=== PATIENT | male | born 1965 | race Asian ===

== ENCOUNTER 2017-11-24 09:07 | Inpatient (IN) | payer SELFPAY ==
[2017-11-24] VITALS (10 sets, daily range): BP systolic 92–129; BP diastolic 60–81
[~2017-11-24] VITALS: Ht 170.2 cm; Wt 62.1 kg
[2017-11-24] MEDS ORDERED: methylPREDNISolone SOD SUCC PF 125 MG/2 ML VIAL. IV ONE (09:45)
[2017-11-24] MEDS ORDERED: IPRATRPIUM/ALBUTEROL 0.5/2.5MG 3 ML NEBU. NEB ONE (09:45)
[2017-11-24] MEDS ORDERED: IV NORMAL SALINE 1000ML BAG 1,000 ML IV ONE (09:45)
--- NOTE | 2017-11-24 09:53 | PHYS DOC ---
Past Medical History Past Medical History: No Pertinent History Past Surgical History: No Surgical History Alcohol Use: None Drug Use: None Adult General Chief Complaint Chief Complaint: SHORTNESS OF BREATH HPI HPI Patient is a 52 year old male presents to ER with complaints of shortness of air for the past month which has worsened over the past 3-4 days. Patient speaks primarily Moroccan and so discussed use of translation phone for communication. Patient is wanting friend Nellie who is at bedside to translate as he is not wanting to use translation phone. Patient's friend Nellie reports patient was seen by a [facility] seen physician 2 weeks ago and was given 10 day course of antibiotics along with 2 shots. Patient and his friend Nellie are uncertain what medications he was given. Patient reports symptoms have continued with worsening symptoms for the past 2-3 days. He denies any fever or chills, chest pain or palpitations, or swelling in extremities. He denies any recent travel, being a smoker, or previous history of DVT/PE. Patient reports he has had decreased appetite with intermittent nausea and a couple episodes of vomiting. Patient reports he's had productive cough with white phlegm. Patient has been urinating without symptoms. Pt denies any family history of CAD. 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 Pt reports when outside sxs improve and when he goes into air conditioned room his sxs seem worse. Review of Systems Review of Systems Constitutional: Denies fever or chills [] Eyes: Denies change in visual acuity, redness, or eye pain [] HENT: Denies nasal congestion or sore throat [] Respiratory: Reports prod. cough with white phlegm- SOA which worsens with exertion Cardiovascular: Denies chest pain or palpitations GI: Denies abdominal pain. Reports intermittent nausea w/2 episodes vomiting. Denies diarrhea/bloody stools : Denies dysuria or hematuria [] Musculoskeletal: Denies back pain or joint pain. Denies swelling/bilat. calf pain Integument: Denies rash or skin lesions [] Neurologic: Denies headache, focal weakness or sensory changes All other systems were reviewed and found to be within normal limits, except as documented in this note. Current Medications Current Medications Current Medications Medications (Trade) Dose Ordered Sig/Kei Start Time Stop Time Status Last Admin Dose Admin Albuterol/ Ipratropium (Duoneb) 3 ml 1X ONCE 11/24/17 09:45 11/24/17 09:50 DC 11/24/17 10:18 3 ML Azithromycin 250 ml @ 250 mls/hr 1X ONCE 11/24/17 10:30 11/24/17 11:29 DC 11/24/17 11:02 250 MLS/HR Ceftriaxone Sodium 50 ml @ 100 mls/hr 1X ONCE 11/24/17 10:30 11/24/17 10:59 DC 11/24/17 11:03 100 MLS/HR Methylprednisolone Sodium Succinate (SOLU-Medrol 125MG VIAL) 125 mg 1X ONCE 11/24/17 09:45 11/24/17 09:50 DC 11/24/17 10:16 125 MG Sodium Chloride 1,000 ml @ 1,000 mls/hr 1X ONCE 11/24/17 09:45 11/24/17 10:44 DC 11/24/17 10:15 1,000 MLS/HR Allergies Allergies Allergies Coded Allergies Type Severity Reaction Last Updated Verified No Known Drug Allergies 11/24/17 No Physical Exam Physical Exam Constitutional: Well developed, well nourished, no acute distress, non-toxic appearance. Speaking in full sentences HENT: Normocephalic, atraumatic, bilateral external ears normal, mucous membranes pink/dry, no oral exudates, nose normal. No facial swelling Eyes: PERRLA, no nystagmus, conjunctiva normal, no discharge. [] Neck: Normal range of motion, no tenderness, supple, no gross adenopathy Cardiovascular:Tachycardic heart rate/rhythm, no murmur [] Lungs & Thorax: Breath sounds clear rt upper lobe- diminished lung sounds lt side upper/lower and rt lower lobe. Resp. equal/nonlabored Abdomen: Bowel sounds normal, soft/nondistended, no tenderness, no masses, no pulsatile masses. [] Skin: Warm, dry, no erythema, no rash. [] Back: No tenderness, no CVA tenderness. [] Extremities: No tenderness, no cyanosis, no clubbing, ROM intact, no edema. [] Neurologic: Alert and oriented X 3, normal motor function, normal sensory function, no focal deficits noted. [] Psychologic: Affect normal, judgement normal, mood normal. [] Current Patient Data Vital Signs Vital Signs Date Time Temp Pulse Resp B/P (MAP) Pulse Ox O2 Delivery O2 Flow Rate FiO2 8/13/18 10:30 84 24 112/68 (83) 94 Room Air 11/24/17 09:28 98.5 98.5 Lab Values Laboratory Tests Test 11/24/17 09:45 White Blood Count 10.1 x10^3/uL (4.0-11.0) Red Blood Count 4.70 x10^6/uL (4.30-5.70) Hemoglobin 14.6 g/dL (13.0-17.5) Hematocrit 42.7 % (39.0-53.0) Mean Corpuscular Volume 91 fL (79-100) Mean Corpuscular Hemoglobin 31 pg (25-35) Mean Corpuscular Hemoglobin Concent 34 g/dL (31-37) Red Cell Distribution Width 12.7 % (11.5-14.5) Platelet Count 240 x10^3/uL (140-400) Neutrophils (%) (Auto) 81 % (31-73) H Lymphocytes (%) (Auto) 9 % (24-48) L Monocytes (%) (Auto) 8 % (0-9) Eosinophils (%) (Auto) 1 % (0-3) Basophils (%) (Auto) 1 % (0-3) Neutrophils # (Auto) 8.2 x10^3uL (1.8-7.7) H Lymphocytes # (Auto) 0.9 x10^3/uL (1.0-4.8) L Monocytes # (Auto) 0.8 x10^3/uL (0.0-1.1) Eosinophils # (Auto) 0.1 x10^3/uL (0.0-0.7) Basophils # (Auto) 0.1 x10^3/uL (0.0-0.2) D-Dimer (Trish) 15.54 ug/mlFEU (0.00-0.50) H Sodium Level 137 mmol/L (136-145) Potassium Level 3.5 mmol/L (3.5-5.1) Chloride Level 101 mmol/L (98-107) Carbon Dioxide Level 23 mmol/L (21-32) Anion Gap 13 (6-14) Blood Urea Nitrogen 18 mg/dL (8-26) Creatinine 0.9 mg/dL (0.7-1.3) Estimated GFR (Cockcroft-Gault) 88.3 BUN/Creatinine Ratio 20 (6-20) Glucose Level 87 mg/dL (70-99) Lactic Acid Level 1.9 mmol/L (0.4-2.0) Calcium Level 8.9 mg/dL (8.5-10.1) Total Bilirubin 0.9 mg/dL (0.2-1.0) Aspartate Amino Transferase (AST) 13 U/L (15-37) L Alanine Aminotransferase (ALT) 19 U/L (16-63) Alkaline Phosphatase 76 U/L (46-116) Creatine Kinase 73 U/L (39-308) Creatine Kinase MB (Mass) 0.6 ng/mL (0.0-3.6) Creatine Kinase MB Relative Index % (0-4) Troponin I Quantitative < 0.017 ng/mL (0.000-0.055) LG-Dcb-L-Type Natriuretic Peptide 24 pg/mL (0-124) Total Protein 7.9 g/dL (6.4-8.2) Albumin 3.4 g/dL (3.4-5.0) Albumin/Globulin Ratio 0.8 (1.0-1.7) L Laboratory Tests 11/24/17 09:45 Laboratory Tests 11/24/17 09:45 EKG EKG EKG obtained 11/24/17 at [address] Amaral Sinus tachycardia Vent rate 106 Radiology/Procedures Radiology/Procedures AP and Lateral Views of the Chest 11/24/2017 9:38 AM Indication: SHORTNESS OF AIR X 1 MONTH WORSE IN THE LAST 3 DAYS ALONG WITH A PRODUCTIVE COUGH Comparison: Not available Findings: There is a large left-sided pleural fluid collection with underlying compressive atelectasis which appears involve the entirety of the left lower lobe. Progressive atelectasis involving the upper lobes also seen. Bronchograms are seen in the left perihilar region. Empyema not excluded. There is a small right pleural effusion, with fluid noted in the minor fissure. There is a right infrahilar and middle lobe infiltrate. Some rightward shift of the mediastinum appears to be present. No pneumothorax is identified. An acute osseous abnormality is not identified. IMPRESSION: 1.Large loculated appearing left pleural fluid collection with significant underlying compressive atelectasis involving the upper lobe, and the entirety of the lower lobe. Mild rightward shift of the mediastinum noted. Empyema not excluded. 2. Right infrahilar and middle lobe infiltrate 3. Small right pleural effusion 4. Contrast-enhanced CT of the chest recommended for further characterization. Electronically signed by: Cuong Chadwick MD (11/24/2017 10:15 AM) [facility] DICTATED and SIGNED BY: CUONG CHADWICK MD DATE: 11/24/17 1012 Course & Med Decision Making Course & Med Decision Making Pertinent Labs and Imaging studies reviewed. (See chart for details) Dicussed pt's case and plan of care with Dr. Amaral. Pt was found to have lg lt side pleural effusion with fld collection along with rt side infrahilar and middle lobe infiltr. Blood cxs and lactic acid ordered along with IV Rocephin and Azithromycin. DDimer is pending. WBCs NL at 10.1 with no bands 81 neuts. EKG with no acute ST elevation/STEMI and troponin <0.017. Discussed test results with pt via translation phone along with plans for IV antibiotics and admission. Pt agreeable with admit and tx plan. He remains nontoxic in appearance and in no visible distress on re-eval. O2 sat was 93% on RA so O2 applied via NC at 2L. Pt denies SOA or CP. 1031: spoke with Dr. Mcneal, hospitalist and discussed pt's case along with admission plans to their services for further care. Will place consult for pulm. DDimer 15.[address] angio chest was ordered. Dragon Disclaimer Dragon Disclaimer This electronic medical record was generated, in whole or in part, using a voice recognition dictation system. Departure Departure Impression: Primary Impression: Dyspnea Additional Impressions: Pleural effusion on left Empyema lung Disposition: ADMITTED INPATIENT Admitting Physician: Kvng Hugo Condition: STABLE Referrals: NO PCP (PCP) Problem Qualifiers LUCA JARQUIN APRN Nov 24, 2017 09:53
[2017-11-24 10:06] LABS: BASO # 0.1 x10^3/uL (0.0-0.2); BASO % 1 % (0-3); EOS # 0.1 x10^3/uL (0.0-0.7); EOS % 1 % (0-3); HEMATOCRIT 42.7 % (39.0-53.0); HEMOGLOBIN 14.6 g/dL (13.0-17.5); LYMPH # 0.9 x10^3/uL (1.0-4.8); LYMPH % 9 % (24-48); MEAN CORPUSCULAR HEMOGLOBIN 31 pg (25-35); MEAN CORPUSCULAR HGB CONC 34 g/dL (31-37); MEAN CORPUSCULAR VOLUME 91 fL (79-100); MONO # 0.8 x10^3/uL (0.0-1.1); MONO % 8 % (0-9); NEUT # 8.2 x10^3uL (1.8-7.7); NEUT % 81 % (31-73); PLATELET COUNT 240 x10^3/uL (140-400); RED CELL DISTRIBUTION WIDTH 12.7 % (11.5-14.5); WHITE BLOOD COUNT 10.1 x10^3/uL (4.0-11.0)
--- NOTE | 2017-11-24 10:06 | EKG ---
[facility] [address] [place] [address] Test Date: 2017-11-24 Test Time: 09:31:16 Pat Name: STORMY CASTILLO Department: Room: Gender: M Chairman Emeritus: : 1965 Requested By: LUCA JARQUIN Order Number: [id number] Reading MD: Kobi Sanchez MD Measurements Intervals [place] Rate: 105 P: 30 [place]: 134 QRS: 34 QRSD: 84 T: 9 QT: 336 QTc: 448 Interpretive Statements SINUS TACHYCARDIA Electronically Signed On 11-27-2017 15:13:56 CDT by Kobi Sanchez MD
[2017-11-24 10:17] LABS: CALCIUM 8.9 mg/dL (8.5-10.1); CREATININE 0.9 mg/dL (0.7-1.3); GFR 88.3; POTASSIUM 3.5 mmol/L (3.5-5.1)
--- NOTE | 2017-11-24 10:18 | RAD ---
AP and Lateral Views of the Chest 11/24/2017 9:38 AM Indication: SHORTNESS OF AIR X 1 MONTH WORSE IN THE LAST 3 DAYS ALONG WITH A PRODUCTIVE COUGH Comparison: Not available Findings: There is a large left-sided pleural fluid collection with underlying compressive atelectasis which appears involve the entirety of the left lower lobe. Progressive atelectasis involving the upper lobes also seen. Bronchograms are seen in the left perihilar region. Empyema not excluded. There is a small right pleural effusion, with fluid noted in the minor fissure. There is a right infrahilar and middle lobe infiltrate. Some rightward shift of the mediastinum appears to be present. No pneumothorax is identified. An acute osseous abnormality is not identified. IMPRESSION: 1.Large loculated appearing left pleural fluid collection with significant underlying compressive atelectasis involving the upper lobe, and the entirety of the lower lobe. Mild rightward shift of the mediastinum noted. Empyema not excluded. 2. Right infrahilar and middle lobe infiltrate 3. Small right pleural effusion 4. Contrast-enhanced CT of the chest recommended for further characterization. Electronically signed by: Cuong Stevens MD (11/24/2017 10:15 AM) [facility]
[2017-11-24 10:19] LABS: ALBUMIN 3.4 g/dL (3.4-5.0); ALBUMIN/GLOBULIN RATIO 0.8 (1.0-1.7); TOTAL BILIRUBIN 0.9 mg/dL (0.2-1.0); TOTAL PROTEIN 7.9 g/dL (6.4-8.2)
[2017-11-24 10:29] LABS: CREATINE KINASE 73 U/L (39-308)
[2017-11-24] MEDS ORDERED: AZITHRMYCN 500MG IVPB FOR OMNI 250 ML IV ONE (10:30)
[2017-11-24] MEDS ORDERED: IOHEXOL 300 MG/ML 100ML VIAL. IV ONE (12:30)
[2017-11-24] MEDS ORDERED: CONTRAST GIVEN. MC PRN (12:45)
--- NOTE | 2017-11-24 14:09 | PDOC1 ---
History and Physical Date of Admission Date of Admission DATE: 11/24/17 TIME: 14:08 Identification/Chief Complaint Chief Complaint Patient's friend Nellie reports seen by a [facility] seen physician 2 weeks ago and was given 10 day course of antibiotics along with 2 shots. Patient reports symptoms have continued with worsening symptoms for the past 2 days. denies any fever or chills, chest pain or palpitations, or swelling in extremities, denies any recent travel, being a smoker, or previous history of DVT/PE. he has had decreased appetite with intermittent nausea and a couple episodes of vomiting. Patient reports he's had productive cough with white phlegm. Past Medical History Cardiovascular: No pertinent hx Infectious disease: No pertinent hx ENT: No pertinent hx Dermatology: No pertinent hx Family History Family History: High Cholestrol Social History Smoke: No ALCOHOL: social Drugs: None Current Problem List Problem List Problems Medical Problems: (1) Dyspnea Status: Acute (2) Empyema lung Status: Acute (3) Pleural effusion on left Status: Acute Current Medications Current Medications Current Medications Albuterol/ Ipratropium (Duoneb) 3 ml 1X ONCE NEB Last administered on at 10:18; Start 11/24/17 at 09:45; Stop 11/24/17 at 09:50; Status DC Sodium Chloride 1,000 ml @ 1,000 mls/hr 1X ONCE IV Last administered on at 10:15; Start 11/24/17 at 09:45; Stop 11/24/17 at 10:44; Status DC Methylprednisolone Sodium Succinate (SOLU-Medrol 125MG VIAL) 125 mg 1X ONCE IV Last administered on 11/24/17at 10:16; Start 11/24/17 at 09:45; Stop 11/24/17 at 09:50; Status DC Ceftriaxone Sodium 50 ml @ 100 mls/hr 1X ONCE IV Last administered on at 11:03; Start 11/24/17 at 10:30; Stop 11/24/17 at 10:59; Status DC Azithromycin 250 ml @ 250 mls/hr 1X ONCE IV Last administered on 11/24/17at 11 :02; Start 11/24/17 at 10:30; Stop 11/24/17 at 11:29; Status DC Iohexol (Omnipaque 300 Mg/ml) 75 ml 1X ONCE IV ; Start 11/24/17 at 12:30; Stop 11/24/17 at 12:33; Status DC Info (CONTRAST GIVEN -- Rx MONITORING) 1 each PRN DAILY PRN MC SEE COMMENTS; Start 11/24/17 at 12:45; Stop 11/26/17 at 12:44 Allergies Allergies: Coded Allergies: No Known Drug Allergies (Unverified , 11/24/17) ROS Review of System Review of Systems Review of Systems Constitutional: fever AND chills [] Eyes: Denies change in visual acuity, redness, or eye pain [] HENT: Denies nasal congestion or sore throat [] Respiratory: Reports prod. cough with white phlegm- SOA which worsens with exertion Cardiovascular: Denies chest pain or palpitations GI: Denies abdominal pain. Reports intermittent nausea w/2 episodes vomiting. Denies diarrhea/bloody stools : Denies dysuria or hematuria [] Musculoskeletal: Denies back pain or joint pain. Denies swelling/bilat. calf pain Integument: Denies rash or skin lesions [] Neurologic: Denies headache, focal weakness or sensory changes 14 PT systems were reviewed and found to be within normal limits, except as documented General: YES: Chills, Fatigue Respiratory: YES: Cough, Shortness of breath Physical Exam Physical Exam Physical Exam Physical Exam Constitutional: Well developed, well nourished, no acute distress, non-toxic appearance. [] HENT: Normocephalic, atraumatic, bilateral external ears normal, mucous membranes pink/dry, no oral exudates, nose normal. [] Eyes: PERRLA, no nystagmus, conjunctiva normal, no discharge. [] Neck: Normal range of motion, no tenderness, supple, no gross adenopathy Cardiovascular:Tachycardic heart rate/rhythm, no murmur [] Lungs & Thorax: Breath sounds clear rt upper lobe- diminished lung sounds lt side upper/lower and rt lower lobe. Resp. equal/nonlabored Abdomen: Bowel sounds normal, soft/nondistended, no tenderness, no masses, no pulsatile masses. [] Skin: Warm, dry, no erythema, no rash. [] Back: No tenderness, no CVA tenderness. [] Extremities: No tenderness, no cyanosis, no clubbing, ROM intact, no edema. [] Neurologic: Alert and oriented X 3, normal motor function, normal sensory function, no focal deficits noted. [] Psychologic: Affect normal, judgement normal, mood normal. [] General: Alert, Cooperative HEENT: PERRLA, EOMI Heart: no gallops Rectal Exam: not examined, deferred Neuro: Cranial nerves 3-12 NL Psych/Mental Status: Mood NL Vitals Vitals Vital Signs Date Time Temp Pulse Resp B/P (MAP) Pulse Ox O2 Delivery O2 Flow Rate FiO2 11/24/17 11:30 90 22 103/69 (80) 96 Nasal Cannula 2.0 11/24/17 09:28 98.5 98.5 Labs Labs Laboratory Tests Test 11/24/17 09:45 White Blood Count 10.1 x10^3/uL (4.0-11.0) Red Blood Count 4.70 x10^6/uL (4.30-5.70) Hemoglobin 14.6 g/dL (13.0-17.5) Hematocrit 42.7 % (39.0-53.0) Mean Corpuscular Volume 91 fL (79-100) Mean Corpuscular Hemoglobin 31 pg (25-35) Mean Corpuscular Hemoglobin Concent 34 g/dL (31-37) Red Cell Distribution Width 12.7 % (11.5-14.5) Platelet Count 240 x10^3/uL (140-400) Neutrophils (%) (Auto) 81 % (31-73) Lymphocytes (%) (Auto) 9 % (24-48) Monocytes (%) (Auto) 8 % (0-9) Eosinophils (%) (Auto) 1 % (0-3) Basophils (%) (Auto) 1 % (0-3) Neutrophils # (Auto) 8.2 x10^3uL (1.8-7.7) Lymphocytes # (Auto) 0.9 x10^3/uL (1.0-4.8) Monocytes # (Auto) 0.8 x10^3/uL (0.0-1.1) Eosinophils # (Auto) 0.1 x10^3/uL (0.0-0.7) Basophils # (Auto) 0.1 x10^3/uL (0.0-0.2) D-Dimer (Trish) 15.54 ug/mlFEU (0.00-0.50) Sodium Level 137 mmol/L (136-145) Potassium Level 3.5 mmol/L (3.5-5.1) Chloride Level 101 mmol/L (98-107) Carbon Dioxide Level 23 mmol/L (21-32) Anion Gap 13 (6-14) Blood Urea Nitrogen 18 mg/dL (8-26) Creatinine 0.9 mg/dL (0.7-1.3) Estimated GFR (Cockcroft-Gault) 88.3 BUN/Creatinine Ratio 20 (6-20) Glucose Level 87 mg/dL (70-99) Lactic Acid Level 1.9 mmol/L (0.4-2.0) Calcium Level 8.9 mg/dL (8.5-10.1) Total Bilirubin 0.9 mg/dL (0.2-1.0) Aspartate Amino Transf (AST/SGOT) 13 U/L (15-37) Alanine Aminotransferase (ALT/SGPT) 19 U/L (16-63) Alkaline Phosphatase 76 U/L (46-116) Creatine Kinase 73 U/L (39-308) Creatine Kinase MB (Mass) 0.6 ng/mL (0.0-3.6) Creatine Kinase MB Relative Index % (0-4) Troponin I Quantitative < 0.017 ng/mL (0.000-0.055) EB-Emz-L-Type Natriuretic Peptide 24 pg/mL (0-124) Total Protein 7.9 g/dL (6.4-8.2) Albumin 3.4 g/dL (3.4-5.0) Albumin/Globulin Ratio 0.8 (1.0-1.7) Laboratory Tests Test 11/24/17 09:45 White Blood Count 10.1 x10^3/uL (4.0-11.0) Red Blood Count 4.70 x10^6/uL (4.30-5.70) Hemoglobin 14.6 g/dL (13.0-17.5) Hematocrit 42.7 % (39.0-53.0) Mean Corpuscular Volume 91 fL (79-100) Mean Corpuscular Hemoglobin 31 pg (25-35) Mean Corpuscular Hemoglobin Concent 34 g/dL (31-37) Red Cell Distribution Width 12.7 % (11.5-14.5) Platelet Count 240 x10^3/uL (140-400) Neutrophils (%) (Auto) 81 % (31-73) Lymphocytes (%) (Auto) 9 % (24-48) Monocytes (%) (Auto) 8 % (0-9) Eosinophils (%) (Auto) 1 % (0-3) Basophils (%) (Auto) 1 % (0-3) Neutrophils # (Auto) 8.2 x10^3uL (1.8-7.7) Lymphocytes # (Auto) 0.9 x10^3/uL (1.0-4.8) Monocytes # (Auto) 0.8 x10^3/uL (0.0-1.1) Eosinophils # (Auto) 0.1 x10^3/uL (0.0-0.7) Basophils # (Auto) 0.1 x10^3/uL (0.0-0.2) D-Dimer (Trish) 15.54 ug/mlFEU (0.00-0.50) Sodium Level 137 mmol/L (136-145) Potassium Level 3.5 mmol/L (3.5-5.1) Chloride Level 101 mmol/L (98-107) Carbon Dioxide Level 23 mmol/L (21-32) Anion Gap 13 (6-14) Blood Urea Nitrogen 18 mg/dL (8-26) Creatinine 0.9 mg/dL (0.7-1.3) Estimated GFR (Cockcroft-Gault) 88.3 BUN/Creatinine Ratio 20 (6-20) Glucose Level 87 mg/dL (70-99) Lactic Acid Level 1.9 mmol/L (0.4-2.0) Calcium Level 8.9 mg/dL (8.5-10.1) Total Bilirubin 0.9 mg/dL (0.2-1.0) Aspartate Amino Transf (AST/SGOT) 13 U/L (15-37) Alanine Aminotransferase (ALT/SGPT) 19 U/L (16-63) Alkaline Phosphatase 76 U/L (46-116) Creatine Kinase 73 U/L (39-308) Creatine Kinase MB (Mass) 0.6 ng/mL (0.0-3.6) Creatine Kinase MB Relative Index % (0-4) Troponin I Quantitative < 0.017 ng/mL (0.000-0.055) CI-Hpq-A-Type Natriuretic Peptide 24 pg/mL (0-124) Total Protein 7.9 g/dL (6.4-8.2) Albumin 3.4 g/dL (3.4-5.0) Albumin/Globulin Ratio 0.8 (1.0-1.7) Images Images IMPRESSION: 1.Large loculated appearing left pleural fluid collection with significant underlying compressive atelectasis involving the upper lobe, and the entirety of the lower lobe. Mild rightward shift of the mediastinum noted. Empyema not excluded. 2. Right infrahilar and middle lobe infiltrate 3. Small right pleural effusion 4. Contrast-enhanced CT of the chest recommended for further characterization. Electronically signed by: Cuong Stevens MD (11/24/2017 10:15 AM) [facility] VTE Prophylaxis Ordered VTE Prophylaxis Devices: Yes VTE Pharmacological Prophylaxi: Yes Assessment/Plan Assessment/Plan Impression: Dyspnea Pleural effusion on left .Large loculated appearing left pleural fluid collection with significant underlying compressive atelectasis involving the upper lobe, and the entirety of the lower lobe. Mild rightward shift of the mediastinum noted. Empyema lung ADMITTED INPATIENT PULM CONSULT ID CONSULT EMPERIC IV ANTIBIOTICS, ZITHROMAX, ROCEPHIN URINE STREP PNEUMO AG LEGIONELLA URINE AG PHILIP GONZALES MD Nov 24, 2017 14:09
[2017-11-24] MEDS ORDERED: LIDOCAINE WITH 8.4% SOD BICARB 3 ML DISP.SYRIN. ONE (14:49)
[2017-11-24] MEDS ORDERED: ENOXAPARIN 40 MG/0.4 ML SYRINGE. SQ SCH (15:00)
--- NOTE | 2017-11-24 15:11 | RAD ---
CLINICAL HISTORY: SHORTNESS OF AIR OMNI 300 75ML. COMPARISON: chest radiograph 11/24/2017. TECHNIQUE: CT of the chest following the administration of intravenous contrast. Coronal and sagittal reformatted images were generated. PQRS compliance Statement One or more of the following individualized dose reduction techniques were utilized for this study: 1. Automated exposure control 2. Adjustment of the mA and/or kV according to patient size 3. Use of iterative reconstruction technique FINDINGS: Adequate contrast bolus timing. There is no abnormal deviation of the interventricular septum. Within the constraints slight limitations of motion artifact in the lung bases, no definite embolus is identified. The heart is not enlarged. Rightward shift of the mediastinum as described below. A 1.6 x 0.1 cm AP window lymph node is seen. A conglomerate of right hilar lymph nodes are seen measuring 2.8 x 2.9 cm. There is a large left pleural effusion resulting in inversion of the left hemidiaphragm and rightward mass effect on the mediastinum. There is diffuse left lung atelectasis with minimal aeration of the left upper lung. Middle lobe parenchymal airspace opacities are seen with associated air bronchograms, likely consolidation. No right pleural effusion. Visualized upper abdomen is grossly unremarkable. No definite aggressive osseous lesion is seen. IMPRESSION: 1. No evidence for acute pulmonary embolus. 2. Large left pleural effusion resulting in rightward mediastinal shift, inversion of the left hemidiaphragm and near complete atelectasis of the left lung. 3. Mediastinal and right hilar lymphadenopathy, possibly reactive. 4. Middle lobe parenchymal airspace opacity with some air bronchograms, consolidation possibly from infectious etiology. Electronically signed by: Wesley Colindres MD (11/24/2017 3:07 PM) [facility]
[2017-11-24] MEDS ORDERED: LIDOCAINE WITH 8.4% SOD BICARB 3 ML DISP.SYRIN. INJ ONE (15:45)
--- NOTE | 2017-11-24 15:59 | CONS ---
DATE OF CONSULTATION: ATTENDING PHYSICIAN: Dr. Shook. REASON FOR CONSULTATION: Pleural effusion. HISTORY OF PRESENT ILLNESS: The patient is a 52-year-old [place]ian male who does not speak much Telugu. Much of the information is obtained from the ER note where translation service was used. The patient presented to the hospital with increasing shortness of breath for last one month. He also has a cough. He has finished 10 days course of antibiotics along with 2 shots. He denies being a smoker. No history of deep vein thrombosis or pulmonary embolism. He has some intermittent nausea and also some episodes of vomiting as well. His CT chest was reviewed. This was done with CT angiogram protocol as his D-dimer is markedly elevated. There was no evidence of pulmonary embolism. There was a large left pleural effusion resulting in some mediastinal shift contralaterally and causing near complete atelectasis of the left lung. There was some reactive mediastinal and hilar adenopathy. I have been asked to see him for further evaluation. PAST MEDICAL HISTORY: Nothing major except recent dyspnea for last one month. PAST SURGICAL HISTORY: No recent surgery. ALLERGIES: None. CURRENT MEDICATIONS: Reviewed as listed in the MRAD including antibiotics. REVIEW OF SYSTEMS: Unable to obtain from the patient due to language barrier. SOCIAL HISTORY: Denies tobacco history. PHYSICAL EXAMINATION: VITAL SIGNS: Reviewed. Pulse ox 94% on room air, afebrile. HEENT: Sclerae nonicteric. NECK: Supple. LUNGS: Diminished breath sounds left lung. CARDIOVASCULAR: Regular rate and rhythm. ABDOMEN: Soft. EXTREMITIES: With no pitting edema. LABORATORY DATA: Reviewed. White cell count 10.1, hemoglobin 14.6 and platelets are 240. BUN 18, creatinine 0.9. IMPRESSION: 1. Large partially loculated left-sided pleural effusion. The differential diagnosis would include pneumonia with empyema. Malignancy appears to be less likely. There is no definite mass seen Congestive heart failure again less likely. 2. No significant history of tobacco use. RECOMMENDATIONS: 1. Continue present antibiotics. 2. P.r.n. bronchodilators. 3. P.r.n. oxygen. 4. CT-guided left chest tube and attached to Pleur-Evac and review the analysis and assess for empyema. 5. We will withhold Lovenox until the procedure is done. Discussed with RN. RAYO LUGO MD DR: Garrett JOB#: [id number] / [id number]
[2017-11-24] MEDS: LACTOBACILLUS RHAMNOSUS GG 1 CAPSULE. PO SCH (20:03)
[2017-11-25] VITALS (8 sets, daily range): BP systolic 78–95; BP diastolic 48–60
[2017-11-25 06:27] LABS: BASO % 0 % (0-3); EOS % 0 % (0-3); HEMATOCRIT 40.9 % (39.0-53.0); HEMOGLOBIN 13.8 g/dL (13.0-17.5); LYMPH # 0.9 x10^3/uL (1.0-4.8); LYMPH % 6 % (24-48); MEAN CORPUSCULAR HEMOGLOBIN 31 pg (25-35); MEAN CORPUSCULAR HGB CONC 34 g/dL (31-37); MEAN CORPUSCULAR VOLUME 91 fL (79-100); MONO % 6 % (0-9); NEUT # 13.6 x10^3uL (1.8-7.7); NEUT % 88 % (31-73); PLATELET COUNT 230 x10^3/uL (140-400); RED BLOOD COUNT 4.49 x10^6/uL (4.30-5.70); RED CELL DISTRIBUTION WIDTH 12.9 % (11.5-14.5); WHITE BLOOD COUNT 15.5 x10^3/uL (4.0-11.0)
[2017-11-25 06:49] LABS: ALBUMIN 2.8 g/dL (3.4-5.0); ALBUMIN/GLOBULIN RATIO 0.7 (1.0-1.7); CALCIUM 8.4 mg/dL (8.5-10.1); CREATININE 0.8 mg/dL (0.7-1.3); GFR 101.1; POTASSIUM 3.7 mmol/L (3.5-5.1); TOTAL BILIRUBIN 0.4 mg/dL (0.2-1.0)
--- NOTE | 2017-11-25 08:04 | RAD ---
Left thoracostomy tube placement with ultrasound guidance 11/24/2017 Indication: Large left pleural effusion Comparison study: Chest radiograph earlier today Discussion: The risks and benefits of the procedure were discussed the patient. Informed consent was obtained. Timeout procedure was performed. Left posterior chest was prepped and draped using sterile barrier technique. Ultrasound evaluation demonstrates a large left pleural fluid collection. Reference images were stored medical record. 1% lidocaine was administered for local anesthesia to the skin and subcutaneous tissues. A 5 [place] sheath needle was advanced into the fluid collection. A guidewire was advanced in the collection over which, following dilatation, a 12 [place] pigtail drain catheter was placed. Serosanguineous fluid was aspirated and sent for further evaluation per ordering physician request. The catheter was secured in place, connected to a Pleur-evac device, and a sterile dressing applied. Impression: Ultrasound-guided placement of a left thoracostomy tube
[2017-11-25] MEDS ORDERED: ONDANSETRON PF 4 MG/2 ML VIAL. IV PRN (09:00)
[2017-11-25] MEDS: LACTOBACILLUS RHAMNOSUS GG 1 CAPSULE. PO SCH ×2 (09:14→20:44)
[2017-11-25] MEDS: AZITHROMYCIN 250 MG TABLET. PO SCH (09:14)
--- NOTE | 2017-11-25 10:24 | PDOC ---
PULMONARY PROGRESS NOTES Subjective s/p left chest tube 11/24 1800 cc fluid came out so far, feels better Vitals Vital Signs Date Time Temp Pulse Resp B/P (MAP) Pulse Ox O2 Delivery O2 Flow Rate FiO2 11/25/17 08:30 91 95/60 (72) 11/25/17 07:00 98.4 18 95 Nasal Cannula 2.0 98.4 General: Alert, No acute distress Lungs: Other (improved aeration left lung) Cardiovascular: S1 Abdomen: Soft Neuro Exam: Alert Extremities: No Edema Skin: Warm Labs Laboratory Tests Test 11/24/17 09:45 11/24/17 16:00 11/25/17 06:10 White Blood Count 10.1 x10^3/uL (4.0-11.0) 15.5 x10^3/uL (4.0-11.0) Red Blood Count 4.70 x10^6/uL (4.30-5.70) 4.49 x10^6/uL (4.30-5.70) Hemoglobin 14.6 g/dL (13.0-17.5) 13.8 g/dL (13.0-17.5) Hematocrit 42.7 % (39.0-53.0) 40.9 % (39.0-53.0) Mean Corpuscular Volume 91 fL (79-100) 91 fL (79-100) Mean Corpuscular Hemoglobin 31 pg (25-35) 31 pg (25-35) Mean Corpuscular Hemoglobin Concent 34 g/dL (31-37) 34 g/dL (31-37) Red Cell Distribution Width 12.7 % (11.5-14.5) 12.9 % (11.5-14.5) Platelet Count 240 x10^3/uL (140-400) 230 x10^3/uL (140-400) Neutrophils (%) (Auto) 81 % (31-73) 88 % (31-73) Lymphocytes (%) (Auto) 9 % (24-48) 6 % (24-48) Monocytes (%) (Auto) 8 % (0-9) 6 % (0-9) Eosinophils (%) (Auto) 1 % (0-3) 0 % (0-3) Basophils (%) (Auto) 1 % (0-3) 0 % (0-3) Neutrophils # (Auto) 8.2 x10^3uL (1.8-7.7) 13.6 x10^3uL (1.8-7.7) Lymphocytes # (Auto) 0.9 x10^3/uL (1.0-4.8) 0.9 x10^3/uL (1.0-4.8) Monocytes # (Auto) 0.8 x10^3/uL (0.0-1.1) 1.0 x10^3/uL (0.0-1.1) Eosinophils # (Auto) 0.1 x10^3/uL (0.0-0.7) 0.0 x10^3/uL (0.0-0.7) Basophils # (Auto) 0.1 x10^3/uL (0.0-0.2) 0.0 x10^3/uL (0.0-0.2) D-Dimer (Trish) 15.54 ug/mlFEU (0.00-0.50) Sodium Level 137 mmol/L (136-145) 138 mmol/L (136-145) Potassium Level 3.5 mmol/L (3.5-5.1) 3.7 mmol/L (3.5-5.1) Chloride Level 101 mmol/L (98-107) 106 mmol/L (98-107) Carbon Dioxide Level 23 mmol/L (21-32) 26 mmol/L (21-32) Anion Gap 13 (6-14) 6 (6-14) Blood Urea Nitrogen 18 mg/dL (8-26) 12 mg/dL (8-26) Creatinine 0.9 mg/dL (0.7-1.3) 0.8 mg/dL (0.7-1.3) Estimated GFR (Cockcroft-Gault) 88.3 101.1 BUN/Creatinine Ratio 20 (6-20) 15 (6-20) Glucose Level 87 mg/dL (70-99) 113 mg/dL (70-99) Lactic Acid Level 1.9 mmol/L (0.4-2.0) Calcium Level 8.9 mg/dL (8.5-10.1) 8.4 mg/dL (8.5-10.1) Total Bilirubin 0.9 mg/dL (0.2-1.0) 0.4 mg/dL (0.2-1.0) Aspartate Amino Transf (AST/SGOT) 13 U/L (15-37) 10 U/L (15-37) Alanine Aminotransferase (ALT/SGPT) 19 U/L (16-63) 15 U/L (16-63) Alkaline Phosphatase 76 U/L (46-116) 67 U/L (46-116) Creatine Kinase 73 U/L (39-308) Creatine Kinase MB (Mass) 0.6 ng/mL (0.0-3.6) Creatine Kinase MB Relative Index % (0-4) Troponin I Quantitative < 0.017 ng/mL (0.000-0.055) QS-Xpt-B-Type Natriuretic Peptide 24 pg/mL (0-124) Total Protein 7.9 g/dL (6.4-8.2) 7.0 g/dL (6.4-8.2) Albumin 3.4 g/dL (3.4-5.0) 2.8 g/dL (3.4-5.0) Albumin/Globulin Ratio 0.8 (1.0-1.7) 0.7 (1.0-1.7) Body Fluid pH 7.49 Laboratory Tests Test 11/24/17 16:00 11/25/17 06:10 Body Fluid pH 7.49 White Blood Count 15.5 x10^3/uL (4.0-11.0) Red Blood Count 4.49 x10^6/uL (4.30-5.70) Hemoglobin 13.8 g/dL (13.0-17.5) Hematocrit 40.9 % (39.0-53.0) Mean Corpuscular Volume 91 fL (79-100) Mean Corpuscular Hemoglobin 31 pg (25-35) Mean Corpuscular Hemoglobin Concent 34 g/dL (31-37) Red Cell Distribution Width 12.9 % (11.5-14.5) Platelet Count 230 x10^3/uL (140-400) Neutrophils (%) (Auto) 88 % (31-73) Lymphocytes (%) (Auto) 6 % (24-48) Monocytes (%) (Auto) 6 % (0-9) Eosinophils (%) (Auto) 0 % (0-3) Basophils (%) (Auto) 0 % (0-3) Neutrophils # (Auto) 13.6 x10^3uL (1.8-7.7) Lymphocytes # (Auto) 0.9 x10^3/uL (1.0-4.8) Monocytes # (Auto) 1.0 x10^3/uL (0.0-1.1) Eosinophils # (Auto) 0.0 x10^3/uL (0.0-0.7) Basophils # (Auto) 0.0 x10^3/uL (0.0-0.2) Sodium Level 138 mmol/L (136-145) Potassium Level 3.7 mmol/L (3.5-5.1) Chloride Level 106 mmol/L (98-107) Carbon Dioxide Level 26 mmol/L (21-32) Anion Gap 6 (6-14) Blood Urea Nitrogen 12 mg/dL (8-26) Creatinine 0.8 mg/dL (0.7-1.3) Estimated GFR (Cockcroft-Gault) 101.1 BUN/Creatinine Ratio 15 (6-20) Glucose Level 113 mg/dL (70-99) Calcium Level 8.4 mg/dL (8.5-10.1) Total Bilirubin 0.4 mg/dL (0.2-1.0) Aspartate Amino Transf (AST/SGOT) 10 U/L (15-37) Alanine Aminotransferase (ALT/SGPT) 15 U/L (16-63) Alkaline Phosphatase 67 U/L (46-116) Total Protein 7.0 g/dL (6.4-8.2) Albumin 2.8 g/dL (3.4-5.0) Albumin/Globulin Ratio 0.7 (1.0-1.7) Impression . 1. Large partially loculated left-sided pleural effusion. The differential diagnosis would include pneumonia with empyema. Malignancy appears to be less likely. There is no definite mass seen Congestive heart failure again less likely. 2. No significant history of tobacco use. Plan . 1. Continue present antibiotics. 2. P.r.n. bronchodilators. 3. P.r.n. oxygen. 4. s/p left chest tube placement. will review the analysis once available. Follow ID rec of Abx for empyema. 5. re-start Lovenox d/w MAKENNA CATHERINEAN,RAYO U MD Nov 25, 2017 10:23
--- NOTE | 2017-11-25 10:43 | PDOC ---
PROGRESS NOTES History of Present Illness History of Present Illness Assessment/Plan Assessment/Plan Impression: Dyspnea Pleural effusion on left .Large loculated appearing left pleural fluid collection with significant underlying compressive atelectasis involving the upper lobe, and the entirety of the lower lobe. Mild rightward shift of the mediastinum noted. ? TB 10 yrs ago , treated at [place] Empyene lung ADMITTED INPATIENT PULM CONSULT reviewed ID CONSULT EMPERIC IV ANTIBIOTICS, ZITHROMAX, ROCEPHIN URINE STREP PNEUMO AG LEGIONELLA URINE AG resp isolation Vitals Vitals Vital Signs Date Time Temp Pulse Resp B/P (MAP) Pulse Ox O2 Delivery O2 Flow Rate FiO2 11/25/17 08:30 91 95/60 (72) 11/25/17 07:00 98.4 18 95 Nasal Cannula 2.0 98.4 Physical Exam Physical Exam Neck: Normal range of motion, no tenderness, supple, no gross adenopathy Cardiovascular:Tachycardic heart rate/rhythm, no murmur [] Lungs & Thorax: . Resp. equal/nonlabored Abdomen: Bowel sounds normal, soft/nondistended, no tenderness, no masses, no pulsatile masses. [] Skin: Warm, dry, no erythema, no rash. [] Back: No tenderness, no CVA tenderness. [] Extremities: No tenderness, no cyanosis, no clubbing, ROM intact, no edema. [] Neurologic: Alert and oriented X 3, normal motor function, normal sensory function, no focal deficits noted. [] Psychologic: Affect normal, judgement normal, mood normal. [] General: Alert, Cooperative HEENT: PERRLA, EOMI Heart: no gallops Rectal Exam: not examined, deferred Neuro: Cranial nerves 3-12 NL Psych/Mental Status: Mood NL General: Alert, Cooperative, mild distress Heart: Regular rate Lungs: Other (improved aeration left lung) Abdomen: Normal bowel sounds, Soft Extremities: No clubbing, No cyanosis Labs LABS Laboratory Tests Test 11/24/17 16:00 11/25/17 06:10 Body Fluid pH 7.49 White Blood Count 15.5 x10^3/uL (4.0-11.0) Red Blood Count 4.49 x10^6/uL (4.30-5.70) Hemoglobin 13.8 g/dL (13.0-17.5) Hematocrit 40.9 % (39.0-53.0) Mean Corpuscular Volume 91 fL (79-100) Mean Corpuscular Hemoglobin 31 pg (25-35) Mean Corpuscular Hemoglobin Concent 34 g/dL (31-37) Red Cell Distribution Width 12.9 % (11.5-14.5) Platelet Count 230 x10^3/uL (140-400) Neutrophils (%) (Auto) 88 % (31-73) Lymphocytes (%) (Auto) 6 % (24-48) Monocytes (%) (Auto) 6 % (0-9) Eosinophils (%) (Auto) 0 % (0-3) Basophils (%) (Auto) 0 % (0-3) Neutrophils # (Auto) 13.6 x10^3uL (1.8-7.7) Lymphocytes # (Auto) 0.9 x10^3/uL (1.0-4.8) Monocytes # (Auto) 1.0 x10^3/uL (0.0-1.1) Eosinophils # (Auto) 0.0 x10^3/uL (0.0-0.7) Basophils # (Auto) 0.0 x10^3/uL (0.0-0.2) Sodium Level 138 mmol/L (136-145) Potassium Level 3.7 mmol/L (3.5-5.1) Chloride Level 106 mmol/L (98-107) Carbon Dioxide Level 26 mmol/L (21-32) Anion Gap 6 (6-14) Blood Urea Nitrogen 12 mg/dL (8-26) Creatinine 0.8 mg/dL (0.7-1.3) Estimated GFR (Cockcroft-Gault) 101.1 BUN/Creatinine Ratio 15 (6-20) Glucose Level 113 mg/dL (70-99) Calcium Level 8.4 mg/dL (8.5-10.1) Total Bilirubin 0.4 mg/dL (0.2-1.0) Aspartate Amino Transf (AST/SGOT) 10 U/L (15-37) Alanine Aminotransferase (ALT/SGPT) 15 U/L (16-63) Alkaline Phosphatase 67 U/L (46-116) Total Protein 7.0 g/dL (6.4-8.2) Albumin 2.8 g/dL (3.4-5.0) Albumin/Globulin Ratio 0.7 (1.0-1.7) Assessment and Plan Assessmemt and Plan Problems Medical Problems: (1) Dyspnea Status: Acute (2) Empyema lung Status: Acute (3) Pleural effusion on left Status: Acute Comment Review of Relevant I have reviewed the following items chavo (where applicable) has been applied. Labs Laboratory Tests Test 11/24/17 09:45 11/24/17 16:00 11/25/17 06:10 White Blood Count 10.1 x10^3/uL (4.0-11.0) 15.5 x10^3/uL (4.0-11.0) Red Blood Count 4.70 x10^6/uL (4.30-5.70) 4.49 x10^6/uL (4.30-5.70) Hemoglobin 14.6 g/dL (13.0-17.5) 13.8 g/dL (13.0-17.5) Hematocrit 42.7 % (39.0-53.0) 40.9 % (39.0-53.0) Mean Corpuscular Volume 91 fL (79-100) 91 fL (79-100) Mean Corpuscular Hemoglobin 31 pg (25-35) 31 pg (25-35) Mean Corpuscular Hemoglobin Concent 34 g/dL (31-37) 34 g/dL (31-37) Red Cell Distribution Width 12.7 % (11.5-14.5) 12.9 % (11.5-14.5) Platelet Count 240 x10^3/uL (140-400) 230 x10^3/uL (140-400) Neutrophils (%) (Auto) 81 % (31-73) 88 % (31-73) Lymphocytes (%) (Auto) 9 % (24-48) 6 % (24-48) Monocytes (%) (Auto) 8 % (0-9) 6 % (0-9) Eosinophils (%) (Auto) 1 % (0-3) 0 % (0-3) Basophils (%) (Auto) 1 % (0-3) 0 % (0-3) Neutrophils # (Auto) 8.2 x10^3uL (1.8-7.7) 13.6 x10^3uL (1.8-7.7) Lymphocytes # (Auto) 0.9 x10^3/uL (1.0-4.8) 0.9 x10^3/uL (1.0-4.8) Monocytes # (Auto) 0.8 x10^3/uL (0.0-1.1) 1.0 x10^3/uL (0.0-1.1) Eosinophils # (Auto) 0.1 x10^3/uL (0.0-0.7) 0.0 x10^3/uL (0.0-0.7) Basophils # (Auto) 0.1 x10^3/uL (0.0-0.2) 0.0 x10^3/uL (0.0-0.2) D-Dimer (Trish) 15.54 ug/mlFEU (0.00-0.50) Sodium Level 137 mmol/L (136-145) 138 mmol/L (136-145) Potassium Level 3.5 mmol/L (3.5-5.1) 3.7 mmol/L (3.5-5.1) Chloride Level 101 mmol/L (98-107) 106 mmol/L (98-107) Carbon Dioxide Level 23 mmol/L (21-32) 26 mmol/L (21-32) Anion Gap 13 (6-14) 6 (6-14) Blood Urea Nitrogen 18 mg/dL (8-26) 12 mg/dL (8-26) Creatinine 0.9 mg/dL (0.7-1.3) 0.8 mg/dL (0.7-1.3) Estimated GFR (Cockcroft-Gault) 88.3 101.1 BUN/Creatinine Ratio 20 (6-20) 15 (6-20) Glucose Level 87 mg/dL (70-99) 113 mg/dL (70-99) Lactic Acid Level 1.9 mmol/L (0.4-2.0) Calcium Level 8.9 mg/dL (8.5-10.1) 8.4 mg/dL (8.5-10.1) Total Bilirubin 0.9 mg/dL (0.2-1.0) 0.4 mg/dL (0.2-1.0) Aspartate Amino Transf (AST/SGOT) 13 U/L (15-37) 10 U/L (15-37) Alanine Aminotransferase (ALT/SGPT) 19 U/L (16-63) 15 U/L (16-63) Alkaline Phosphatase 76 U/L (46-116) 67 U/L (46-116) Creatine Kinase 73 U/L (39-308) Creatine Kinase MB (Mass) 0.6 ng/mL (0.0-3.6) Creatine Kinase MB Relative Index % (0-4) Troponin I Quantitative < 0.017 ng/mL (0.000-0.055) OU-Sqn-A-Type Natriuretic Peptide 24 pg/mL (0-124) Total Protein 7.9 g/dL (6.4-8.2) 7.0 g/dL (6.4-8.2) Albumin 3.4 g/dL (3.4-5.0) 2.8 g/dL (3.4-5.0) Albumin/Globulin Ratio 0.8 (1.0-1.7) 0.7 (1.0-1.7) Body Fluid pH 7.49 Laboratory Tests Test 11/24/17 16:00 11/25/17 06:10 Body Fluid pH 7.49 White Blood Count 15.5 x10^3/uL (4.0-11.0) Red Blood Count 4.49 x10^6/uL (4.30-5.70) Hemoglobin 13.8 g/dL (13.0-17.5) Hematocrit 40.9 % (39.0-53.0) Mean Corpuscular Volume 91 fL (79-100) Mean Corpuscular Hemoglobin 31 pg (25-35) Mean Corpuscular Hemoglobin Concent 34 g/dL (31-37) Red Cell Distribution Width 12.9 % (11.5-14.5) Platelet Count 230 x10^3/uL (140-400) Neutrophils (%) (Auto) 88 % (31-73) Lymphocytes (%) (Auto) 6 % (24-48) Monocytes (%) (Auto) 6 % (0-9) Eosinophils (%) (Auto) 0 % (0-3) Basophils (%) (Auto) 0 % (0-3) Neutrophils # (Auto) 13.6 x10^3uL (1.8-7.7) Lymphocytes # (Auto) 0.9 x10^3/uL (1.0-4.8) Monocytes # (Auto) 1.0 x10^3/uL (0.0-1.1) Eosinophils # (Auto) 0.0 x10^3/uL (0.0-0.7) Basophils # (Auto) 0.0 x10^3/uL (0.0-0.2) Sodium Level 138 mmol/L (136-145) Potassium Level 3.7 mmol/L (3.5-5.1) Chloride Level 106 mmol/L (98-107) Carbon Dioxide Level 26 mmol/L (21-32) Anion Gap 6 (6-14) Blood Urea Nitrogen 12 mg/dL (8-26) Creatinine 0.8 mg/dL (0.7-1.3) Estimated GFR (Cockcroft-Gault) 101.1 BUN/Creatinine Ratio 15 (6-20) Glucose Level 113 mg/dL (70-99) Calcium Level 8.4 mg/dL (8.5-10.1) Total Bilirubin 0.4 mg/dL (0.2-1.0) Aspartate Amino Transf (AST/SGOT) 10 U/L (15-37) Alanine Aminotransferase (ALT/SGPT) 15 U/L (16-63) Alkaline Phosphatase 67 U/L (46-116) Total Protein 7.0 g/dL (6.4-8.2) Albumin 2.8 g/dL (3.4-5.0) Albumin/Globulin Ratio 0.7 (1.0-1.7) Microbiology 11/24/17 Blood Culture - Preliminary, Resulted NO GROWTH AFTER 1 DAY Medications Current Medications Albuterol/ Ipratropium (Duoneb) 3 ml 1X ONCE NEB Last administered on at 10:18; Start 11/24/17 at 09:45; Stop 11/24/17 at 09:50; Status DC Sodium Chloride 1,000 ml @ 1,000 mls/hr 1X ONCE IV Last administered on at 10:15; Start 11/24/17 at 09:45; Stop 11/24/17 at 10:44; Status DC Methylprednisolone Sodium Succinate (SOLU-Medrol 125MG VIAL) 125 mg 1X ONCE IV Last administered on 11/24/17at 10:16; Start 11/24/17 at 09:45; Stop 11/24/17 at 09:50; Status DC Ceftriaxone Sodium 50 ml @ 100 mls/hr 1X ONCE IV Last administered on at 11:03; Start 11/24/17 at 10:30; Stop 11/24/17 at 10:59; Status DC Azithromycin 250 ml @ 250 mls/hr 1X ONCE IV Last administered on 11/24/17at 11 :02; Start 11/24/17 at 10:30; Stop 11/24/17 at 11:29; Status DC Iohexol (Omnipaque 300 Mg/ml) 75 ml 1X ONCE IV ; Start 11/24/17 at 12:30; Stop 11/24/17 at 12:33; Status DC Info (CONTRAST GIVEN -- Rx MONITORING) 1 each PRN DAILY PRN MC SEE COMMENTS; Start 11/24/17 at 12:45; Stop 11/26/17 at 12:44 Enoxaparin Sodium (Lovenox 40mg Syringe) 40 mg Q24H SQ ; Start 11/24/17 at 15:00 ; Stop 11/24/17 at 15:34; Status DC Lidocaine/Sodium Bicarbonate (Buffered Lidocaine 1%) 3 ml STK-MED ONCE .ROUTE ; Start 11/24/17 at 14:49; Stop 11/24/17 at 14:50; Status DC Lidocaine/Sodium Bicarbonate (Buffered Lidocaine 1%) 6 ml 1X ONCE INJ Last administered on 11/24/17at 15:51; Start 11/24/17 at 15:45; Stop 11/24/17 at 15:46 ; Status DC Ceftriaxone Sodium (Rocephin) 1 gm Q24H IVP ; Start 11/25/17 at 11:00 Azithromycin (Zithromax) 250 mg DAILY PO Last administered on 11/25/17at 09:14; Start 11/25/17 at 09:00; Stop 11/28/17 at 09:01 Lactobacillus Rhamnosus (Culturelle) 1 cap BID PO Last administered on at 09:14; Start 11/24/17 at 21:00 Ondansetron HCl (Zofran) 4 mg PRN Q4HRS PRN IV NAUSEA/VOMITING Last administered on 11/25/17at 09:14; Start 11/25/17 at 09:00 Enoxaparin Sodium (Lovenox 40mg Syringe) 40 mg Q24H SQ ; Start 11/25/17 at 12:00 Vitals/I & O Vital Sign - Last 24 Hours 11/24/17 11/24/17 11/24/17 11/24/17 11:30 14:30 14:35 15:46 Temp 95.9 95.9 Pulse 90 93 106 Resp 22 16 15 B/P (MAP) 103/69 (80) 115/77 (90) 129/81 (97) Pulse Ox 96 94 95 O2 Delivery Nasal Cannula Nasal Cannula Room Air O2 Flow Rate 2.0 2.0 2.0 11/24/17 11/24/17 11/24/17 11/24/17 15:52 16:00 16:15 16:30 Pulse 100 89 98 99 Resp 15 18 18 18 B/P (MAP) 112/65 (81) 104/66 (79) 102/65 (77) 95/60 (72) Pulse Ox 95 93 93 95 O2 Delivery Room Air Room Air Room Air O2 Flow Rate 2.0 11/24/17 11/24/17 11/24/17 11/24/17 16:45 17:15 19:00 20:00 Temp 98.1 98.1 Pulse 100 105 105 Resp 18 18 20 B/P (MAP) 125/74 (91) 118/72 (87) 107/64 (78) Pulse Ox 95 95 95 O2 Delivery Room Air Room Air Nasal Cannula Nasal Cannula O2 Flow Rate 2.0 2.0 11/24/17 11/25/17 11/25/17 11/25/17 23:00 03:00 07:00 08:30 Temp 97.5 98.1 98.4 97.5 98.1 98.4 Pulse 89 70 66 91 Resp 20 20 18 B/P (MAP) 92/68 (76) 80/58 (65) 83/52 (62) 95/60 (72) Pulse Ox 93 94 95 O2 Delivery Nasal Cannula Nasal Cannula Nasal Cannula O2 Flow Rate 2.0 2.0 2.0 Intake and Output 11/24/17 11/24/17 11/25/17 15:00 23:00 07:00 Intake Total 1000 ml 1100 ml 200 ml Output Total 1980 ml 600 ml Balance 1000 ml -880 ml -400 ml PHILIP GONZALES MD Nov 25, 2017 10:43
--- NOTE | 2017-11-25 11:07 | PDOC ---
Infectious Disease Note Vital Sign Vital Signs Vital Signs Date Time Temp Pulse Resp B/P (MAP) Pulse Ox O2 Delivery O2 Flow Rate FiO2 11/25/17 08:30 91 95/60 (72) 11/25/17 07:00 98.4 18 95 Nasal Cannula 2.0 98.4 Physical Exam PHYSICAL EXAM Neck: Normal range of motion, no tenderness, supple, no gross adenopathy Cardiovascular:Tachycardic heart rate/rhythm, no murmur [] Lungs & Thorax: . Resp. equal/nonlabored Abdomen: Bowel sounds normal, soft/nondistended, no tenderness, no masses, no pulsatile masses. [] Skin: Warm, dry, no erythema, no rash. [] Back: No tenderness, no CVA tenderness. [] Extremities: No tenderness, no cyanosis, no clubbing, ROM intact, no edema. [] Neurologic: Alert and oriented X 3, normal motor function, normal sensory function, no focal deficits noted. [] Psychologic: Affect normal, judgement normal, mood normal. [] General: Alert, Cooperative HEENT: PERRLA, EOMI Heart: no gallops Rectal Exam: not examined, deferred Neuro: Cranial nerves 3-12 NL Psych/Mental Status: Mood NL Labs Lab Laboratory Tests Test 11/24/17 16:00 11/25/17 06:10 Body Fluid pH 7.49 White Blood Count 15.5 x10^3/uL (4.0-11.0) Red Blood Count 4.49 x10^6/uL (4.30-5.70) Hemoglobin 13.8 g/dL (13.0-17.5) Hematocrit 40.9 % (39.0-53.0) Mean Corpuscular Volume 91 fL (79-100) Mean Corpuscular Hemoglobin 31 pg (25-35) Mean Corpuscular Hemoglobin Concent 34 g/dL (31-37) Red Cell Distribution Width 12.9 % (11.5-14.5) Platelet Count 230 x10^3/uL (140-400) Neutrophils (%) (Auto) 88 % (31-73) Lymphocytes (%) (Auto) 6 % (24-48) Monocytes (%) (Auto) 6 % (0-9) Eosinophils (%) (Auto) 0 % (0-3) Basophils (%) (Auto) 0 % (0-3) Neutrophils # (Auto) 13.6 x10^3uL (1.8-7.7) Lymphocytes # (Auto) 0.9 x10^3/uL (1.0-4.8) Monocytes # (Auto) 1.0 x10^3/uL (0.0-1.1) Eosinophils # (Auto) 0.0 x10^3/uL (0.0-0.7) Basophils # (Auto) 0.0 x10^3/uL (0.0-0.2) Sodium Level 138 mmol/L (136-145) Potassium Level 3.7 mmol/L (3.5-5.1) Chloride Level 106 mmol/L (98-107) Carbon Dioxide Level 26 mmol/L (21-32) Anion Gap 6 (6-14) Blood Urea Nitrogen 12 mg/dL (8-26) Creatinine 0.8 mg/dL (0.7-1.3) Estimated GFR (Cockcroft-Gault) 101.1 BUN/Creatinine Ratio 15 (6-20) Glucose Level 113 mg/dL (70-99) Calcium Level 8.4 mg/dL (8.5-10.1) Total Bilirubin 0.4 mg/dL (0.2-1.0) Aspartate Amino Transf (AST/SGOT) 10 U/L (15-37) Alanine Aminotransferase (ALT/SGPT) 15 U/L (16-63) Alkaline Phosphatase 67 U/L (46-116) Total Protein 7.0 g/dL (6.4-8.2) Albumin 2.8 g/dL (3.4-5.0) Albumin/Globulin Ratio 0.7 (1.0-1.7) Micro Microbiology 11/24/17 Blood Culture - Preliminary, Resulted NO GROWTH AFTER 1 DAY Objective Assessment Large pleural effusion, loculated s/p drainage H/O ? TB 10 yrs ago , treated at [facility] ceftriaxone and azithro ok fluid for cell count, afb stain and culture glucose in fluid obtain records from VICTORINO ULLOA MD Nov 25, 2017 11:07
[2017-11-25] MEDS: ENOXAPARIN 40 MG/0.4 ML SYRINGE. SQ SCH (11:34)
[2017-11-25] MEDS: cefTRIAXone IV Push 1 GM VIAL. IVP SCH (11:35)
--- NOTE | 2017-11-25 11:48 | RAD ---
Single view of the chest. 11/25/2017 8:02 AM Indication: recheck chest tube Comparison: Chest radiograph, yesterday Findings: Interval placement of small caliber left thoracostomy tube. Significant reduction in left pleural effusion is noted. No pneumothorax. Mediastinal shift has resolved. Small residual left pleural effusion with underlying basilar atelectasis and/or infiltrate is present.. Trace right pleural effusion also seen. No acute osseous changes are seen. IMPRESSION: 1. Left thoracostomy tube in place 2. Small residual left pleural effusion with underlying atelectasis, infiltrate, or combination thereof. Recommend continued radiographic follow-up to ensure complete resolution and exclude underlying pathology. 3. Trace right pleural effusion, improved Electronically signed by: Cuong Stevens MD (11/25/2017 11:44 AM) [id number]
[2017-11-25 11:56] LABS: % LYMPHS 6 % (24-48); % MONOS 6 % (0-10); % SEGS 88 % (35-66)
[2017-11-25 11:57] LABS: PLT ESTIMATE ADEQUATE (ADEQUATE)
[2017-11-25 13:53] LABS: BF CLARITY HAZY; BF COLOR RED; BF SOURCE PLEURAL; BF WBC COUNT 49 /cmm
[2017-11-25 13:54] LABS: BF MON % 81 %; BF PMN % 19 %; BF RBC COUNT 18193 /cmm
[2017-11-25] MEDS ORDERED: IV NORMAL SALINE 1000ML BAG 1,000 ML IV ONE ×2 (16:30→18:30)
[2017-11-26 03:00] VITALS: BP 93/61
[2017-11-26 04:33] LABS: BASO # 0.1 x10^3/uL (0.0-0.2); BASO % 1 % (0-3); EOS # 0.1 x10^3/uL (0.0-0.7); EOS % 1 % (0-3); HEMATOCRIT 39.6 % (39.0-53.0); HEMOGLOBIN 13.6 g/dL (13.0-17.5); LYMPH # 1.4 x10^3/uL (1.0-4.8); LYMPH % 11 % (24-48); MEAN CORPUSCULAR HEMOGLOBIN 31 pg (25-35); MEAN CORPUSCULAR HGB CONC 34 g/dL (31-37); MEAN CORPUSCULAR VOLUME 91 fL (79-100); MONO # 1.1 x10^3/uL (0.0-1.1); MONO % 9 % (0-9); NEUT % 79 % (31-73); PLATELET COUNT 219 x10^3/uL (140-400); RED BLOOD COUNT 4.35 x10^6/uL (4.30-5.70); RED CELL DISTRIBUTION WIDTH 12.6 % (11.5-14.5); WHITE BLOOD COUNT 12.7 x10^3/uL (4.0-11.0)
[2017-11-26 04:40] LABS: CALCIUM 7.9 mg/dL (8.5-10.1); CREATININE 0.9 mg/dL (0.7-1.3); GFR 88.3; POTASSIUM 3.7 mmol/L (3.5-5.1)
[2017-11-26 07:00] VITALS: BP 92/62
--- NOTE | 2017-11-26 07:12 | CONS ---
DATE OF CONSULTATION: 11/25/2017 REQUESTING PHYSICIAN: Kvng Shook MD REASON FOR CONSULTATION: Possible empyema. HISTORY OF PRESENT ILLNESS: This is a 52-year-old [place] gentleman [place] has been in this country [place] years who came in with shortness of breath. The patient was found to have a large loculated effusion on the left side. Chest tube has been placed, which is showing bloody fluid came out. Through the youth development professional, the patient says he has recently lost at least 10 pounds or so. He does have some night sweats, but no fever. On further questioning, he says he has been treated for somethings that he is familiar like TB in [place] 10 years ago. He does not remember much more than that, not able to communicate more than that. The patient denies any nausea, vomiting, diarrhea. Denies any chest pain. The patient does have a white count of 15,000 after initial normal and the fluid analysis is pending. No nausea, vomiting, diarrhea, chest pain, shortness of breath, abdominal pain right now. PAST MEDICAL HISTORY: Again it is very vague, unreliable but he does vaguely remember 10 years ago, he had some sort of a TB treatment at [place]. The patient also has had 1 round of antibiotics this time before he came in. SOCIAL HISTORY: Negative for smoking, alcohol, illicit drug use. ALLERGIES: No known drug allergies. CURRENT MEDICATIONS: Reviewed. The patient is on Rocephin and azithromycin. ROS : as per HPI, rest neg. PHYSICAL EXAMINATION: GENERAL: Alert, oriented gentleman, not in any distress. VITAL SIGNS: Stable, afebrile. HEENT: NAD. NECK: Supple, no JVP. There are occasional lymph nodes present, probably reactive. LUNGS: Decreased breath sounds. HEART: S1, S2 regular. No gallop or murmur. ABDOMEN: Soft, nontender, no organomegaly. EXTREMITIES: No edema, cyanosis. SKIN: Unremarkable. NEUROLOGIC: The patient is neurologically intact. LABORATORY DATA: White count is up to 15.5 now, was normal yesterday. BUN and creatinine . His body fluid analysis is pending. Blood culture is negative. Chest CT reviewed. Extensive left-sided large pleural effusion with rightward mediastinal shift and inversion of the left hemidiaphragm with complete atelectasis of the left lung, mediastinal and right hilar lymphadenopathy and middle lobe parenchymal airspace opacity seen. IMPRESSION: Very large loculated effusion on the left, which is serosanguineous concerning for tuberculosis and/or malignancy, although there was no mass seen to account for malignancy. There is a vague history of tuberculosis treatment whether it is a latent tuberculosis or active tuberculosis, it is unclear. RECOMMENDATIONS: Continue Rocephin and azithromycin for the time being. Add glucose, cell count and AFB stain and culture into the pleural fluid and I talked to Magaly, infection control to try to go through the health department to obtain records from [facility], 10 years ago that he has gone through. Thank you very much, Dr. Shook, for giving me the opportunity to participate in this patient's care. We will continue to follow. VICTORINO CASTLE MD DR: LEXI/cynthia JOB#: [id number] / [id number] GINA
[2017-11-26] MEDS: AZITHROMYCIN 250 MG TABLET. PO SCH (09:32)
[2017-11-26] MEDS: LACTOBACILLUS RHAMNOSUS GG 1 CAPSULE. PO SCH ×2 (09:32→21:34)
--- NOTE | 2017-11-26 10:02 | PDOC ---
PROGRESS NOTES History of Present Illness History of Present Illness Assessment/Plan Assessment/Plan Impression: Dyspnea Pleural effusion on left .Large loculated appearing left pleural fluid collection with significant underlying compressive atelectasis involving the upper lobe, and the entirety of the lower lobe. Mild rightward shift of the mediastinum noted. ? TB 10 yrs ago , treated at [facility] ADMITTED INPATIENT PULM CONSULT reviewed ID CONSULT EMPERIC IV ANTIBIOTICS, ZITHROMAX, ROCEPHIN URINE STREP PNEUMO AG LEGIONELLA URINE AG resp isolation Vitals Vitals Vital Signs Date Time Temp Pulse Resp B/P (MAP) Pulse Ox O2 Delivery O2 Flow Rate FiO2 11/26/17 07:00 98.9 68 16 92/62 (72) 94 Nasal Cannula 2.0 98.9 Physical Exam Physical Exam Neck: Normal range of motion, no tenderness, supple, no gross adenopathy Cardiovascular:Tachycardic heart rate/rhythm, no murmur [] Lungs & Thorax: . Resp. equal/nonlabored Abdomen: Bowel sounds normal, soft/nondistended, no tenderness, no masses, no pulsatile masses. [] Skin: Warm, dry, no erythema, no rash. [] Back: No tenderness, no CVA tenderness. [] Extremities: No tenderness, no cyanosis, no clubbing, ROM intact, no edema. [] Neurologic: Alert and oriented X 3, normal motor function, normal sensory function, no focal deficits noted. [] Psychologic: Affect normal, judgement normal, mood normal. [] General: Alert, Cooperative HEENT: PERRLA, EOMI Heart: no gallops Rectal Exam: not examined, deferred Neuro: Cranial nerves 3-12 NL Psych/Mental Status: Mood NL General: Alert, Cooperative, mild distress Heart: Regular rate Lungs: Other (improved aeration left lung) Abdomen: Normal bowel sounds, Soft Extremities: No clubbing, No cyanosis Labs LABS STATUS: ADM IN ORD. PHYSICIAN: PHILIP GONZALES MD REASON: pneumonia PROCEDURE: CHEST AP ONLY Single view of the chest. 11/26/2017 9:07 AM Indication: PNEUMONIA, CHEST TUBE CHECK Comparison: Chest radiograph, yesterday Findings: Small caliber left thoracostomy tube persists. Left basilar consolidation is similar to prior study. No pneumothorax is seen. Trace right pleural effusion is again noted. Diffuse interstitial coarsening is seen, similar to prior comparison exams. No acute osseous changes are seen. IMPRESSION: 1. Left thoracostomy tube, similar in position 2. Left basilar consolidation, grossly unchanged 3. Small right pleural effusion, unchanged 4. Diffuse interstitial coarsening which could represent edema or an atypical infectious process, similar to prior exam Electronically signed by: Cuong Stevens MD (11/26/2017 12:27 PM) [id number] Laboratory Tests Test 11/25/17 12:00 11/26/17 03:10 Body Fluid Source Pleural Body Fluid Color Red Body Fluid Clarity Hazy Body Fluid Nucleated Cells 49 /cmm Body Fluid Mononuclear WBCs (%) 81 % Body Fluid Polymorphonuclear Cells 19 % Body Fluid Total RBCs Counted 45167 /cmm White Blood Count 12.7 x10^3/uL (4.0-11.0) Red Blood Count 4.35 x10^6/uL (4.30-5.70) Hemoglobin 13.6 g/dL (13.0-17.5) Hematocrit 39.6 % (39.0-53.0) Mean Corpuscular Volume 91 fL (79-100) Mean Corpuscular Hemoglobin 31 pg (25-35) Mean Corpuscular Hemoglobin Concent 34 g/dL (31-37) Red Cell Distribution Width 12.6 % (11.5-14.5) Platelet Count 219 x10^3/uL (140-400) Neutrophils (%) (Auto) 79 % (31-73) Lymphocytes (%) (Auto) 11 % (24-48) Monocytes (%) (Auto) 9 % (0-9) Eosinophils (%) (Auto) 1 % (0-3) Basophils (%) (Auto) 1 % (0-3) Neutrophils # (Auto) 10.0 x10^3uL (1.8-7.7) Lymphocytes # (Auto) 1.4 x10^3/uL (1.0-4.8) Monocytes # (Auto) 1.1 x10^3/uL (0.0-1.1) Eosinophils # (Auto) 0.1 x10^3/uL (0.0-0.7) Basophils # (Auto) 0.1 x10^3/uL (0.0-0.2) Sodium Level 137 mmol/L (136-145) Potassium Level 3.7 mmol/L (3.5-5.1) Chloride Level 106 mmol/L (98-107) Carbon Dioxide Level 26 mmol/L (21-32) Anion Gap 5 (6-14) Blood Urea Nitrogen 13 mg/dL (8-26) Creatinine 0.9 mg/dL (0.7-1.3) Estimated GFR (Cockcroft-Gault) 88.3 Glucose Level 91 mg/dL (70-99) Calcium Level 7.9 mg/dL (8.5-10.1) Assessment and Plan Assessmemt and Plan Problems Medical Problems: (1) Dyspnea Status: Acute (2) Empyema lung Status: Acute (3) Pleural effusion on left Status: Acute Comment Review of Relevant I have reviewed the following items chavo (where applicable) has been applied. Labs Laboratory Tests Test 11/24/17 16:00 11/25/17 06:10 11/25/17 12:00 11/26/17 03:10 Body Fluid pH 7.49 Body Fluid Total Protein 4.9 g/dL (.) Body Fluid Lactate Dehydrogenase 261 IU/L (.) White Blood Count 15.5 x10^3/uL (4.0-11.0) 12.7 x10^3/uL (4.0-11.0) Red Blood Count 4.49 x10^6/uL (4.30-5.70) 4.35 x10^6/uL (4.30-5.70) Hemoglobin 13.8 g/dL (13.0-17.5) 13.6 g/dL (13.0-17.5) Hematocrit 40.9 % (39.0-53.0) 39.6 % (39.0-53.0) Mean Corpuscular Volume 91 fL (79-100) 91 fL (79-100) Mean Corpuscular Hemoglobin 31 pg (25-35) 31 pg (25-35) Mean Corpuscular Hemoglobin Concent 34 g/dL (31-37) 34 g/dL (31-37) Red Cell Distribution Width 12.9 % (11.5-14.5) 12.6 % (11.5-14.5) Platelet Count 230 x10^3/uL (140-400) 219 x10^3/uL (140-400) Neutrophils (%) (Auto) 88 % (31-73) 79 % (31-73) Lymphocytes (%) (Auto) 6 % (24-48) 11 % (24-48) Monocytes (%) (Auto) 6 % (0-9) 9 % (0-9) Eosinophils (%) (Auto) 0 % (0-3) 1 % (0-3) Basophils (%) (Auto) 0 % (0-3) 1 % (0-3) Neutrophils # (Auto) 13.6 x10^3uL (1.8-7.7) 10.0 x10^3uL (1.8-7.7) Lymphocytes # (Auto) 0.9 x10^3/uL (1.0-4.8) 1.4 x10^3/uL (1.0-4.8) Monocytes # (Auto) 1.0 x10^3/uL (0.0-1.1) 1.1 x10^3/uL (0.0-1.1) Eosinophils # (Auto) 0.0 x10^3/uL (0.0-0.7) 0.1 x10^3/uL (0.0-0.7) Basophils # (Auto) 0.0 x10^3/uL (0.0-0.2) 0.1 x10^3/uL (0.0-0.2) Segmented Neutrophils % 88 % (35-66) Lymphocytes % 6 % (24-48) Monocytes % 6 % (0-10) Platelet Estimate Adequate (ADEQUATE) Sodium Level 138 mmol/L (136-145) 137 mmol/L (136-145) Potassium Level 3.7 mmol/L (3.5-5.1) 3.7 mmol/L (3.5-5.1) Chloride Level 106 mmol/L (98-107) 106 mmol/L (98-107) Carbon Dioxide Level 26 mmol/L (21-32) 26 mmol/L (21-32) Anion Gap 6 (6-14) 5 (6-14) Blood Urea Nitrogen 12 mg/dL (8-26) 13 mg/dL (8-26) Creatinine 0.8 mg/dL (0.7-1.3) 0.9 mg/dL (0.7-1.3) Estimated GFR (Cockcroft-Gault) 101.1 88.3 BUN/Creatinine Ratio 15 (6-20) Glucose Level 113 mg/dL (70-99) 91 mg/dL (70-99) Calcium Level 8.4 mg/dL (8.5-10.1) 7.9 mg/dL (8.5-10.1) Total Bilirubin 0.4 mg/dL (0.2-1.0) Aspartate Amino Transf (AST/SGOT) 10 U/L (15-37) Alanine Aminotransferase (ALT/SGPT) 15 U/L (16-63) Alkaline Phosphatase 67 U/L (46-116) Total Protein 7.0 g/dL (6.4-8.2) Albumin 2.8 g/dL (3.4-5.0) Albumin/Globulin Ratio 0.7 (1.0-1.7) Body Fluid Source Pleural Body Fluid Color Red Body Fluid Clarity Hazy Body Fluid Nucleated Cells 49 /cmm Body Fluid Mononuclear WBCs (%) 81 % Body Fluid Polymorphonuclear Cells 19 % Body Fluid Total RBCs Counted 64820 /cmm Laboratory Tests Test 11/25/17 12:00 11/26/17 03:10 Body Fluid Source Pleural Body Fluid Color Red Body Fluid Clarity Hazy Body Fluid Nucleated Cells 49 /cmm Body Fluid Mononuclear WBCs (%) 81 % Body Fluid Polymorphonuclear Cells 19 % Body Fluid Total RBCs Counted 38498 /cmm White Blood Count 12.7 x10^3/uL (4.0-11.0) Red Blood Count 4.35 x10^6/uL (4.30-5.70) Hemoglobin 13.6 g/dL (13.0-17.5) Hematocrit 39.6 % (39.0-53.0) Mean Corpuscular Volume 91 fL (79-100) Mean Corpuscular Hemoglobin 31 pg (25-35) Mean Corpuscular Hemoglobin Concent 34 g/dL (31-37) Red Cell Distribution Width 12.6 % (11.5-14.5) Platelet Count 219 x10^3/uL (140-400) Neutrophils (%) (Auto) 79 % (31-73) Lymphocytes (%) (Auto) 11 % (24-48) Monocytes (%) (Auto) 9 % (0-9) Eosinophils (%) (Auto) 1 % (0-3) Basophils (%) (Auto) 1 % (0-3) Neutrophils # (Auto) 10.0 x10^3uL (1.8-7.7) Lymphocytes # (Auto) 1.4 x10^3/uL (1.0-4.8) Monocytes # (Auto) 1.1 x10^3/uL (0.0-1.1) Eosinophils # (Auto) 0.1 x10^3/uL (0.0-0.7) Basophils # (Auto) 0.1 x10^3/uL (0.0-0.2) Sodium Level 137 mmol/L (136-145) Potassium Level 3.7 mmol/L (3.5-5.1) Chloride Level 106 mmol/L (98-107) Carbon Dioxide Level 26 mmol/L (21-32) Anion Gap 5 (6-14) Blood Urea Nitrogen 13 mg/dL (8-26) Creatinine 0.9 mg/dL (0.7-1.3) Estimated GFR (Cockcroft-Gault) 88.3 Glucose Level 91 mg/dL (70-99) Calcium Level 7.9 mg/dL (8.5-10.1) Microbiology 11/24/17 Blood Culture - Preliminary, Resulted NO GROWTH AFTER 1 DAY 11/24/17 Anaerobic/Aerobic Culture, Resulted Pending 11/24/17 Anaerobic Culture Result 1 (JOSEPH), Resulted Pending 11/24/17 Aerobic Culture, Resulted Pending 11/24/17 Aerobic Culture Result 1 (JOSEPH), Resulted Pending 11/24/17 Gram Stain - Final, Resulted 11/24/17 Gram Stain Result 1 (JOSEPH) - Final, Resulted 11/24/17 Gram Stain Result 2 (JOSEPH) - Final, Resulted Medications Current Medications Albuterol/ Ipratropium (Duoneb) 3 ml 1X ONCE NEB Last administered on at 10:18; Start 11/24/17 at 09:45; Stop 11/24/17 at 09:50; Status DC Sodium Chloride 1,000 ml @ 1,000 mls/hr 1X ONCE IV Last administered on at 10:15; Start 11/24/17 at 09:45; Stop 11/24/17 at 10:44; Status DC Methylprednisolone Sodium Succinate (SOLU-Medrol 125MG VIAL) 125 mg 1X ONCE IV Last administered on 11/24/17at 10:16; Start 11/24/17 at 09:45; Stop 11/24/17 at 09:50; Status DC Ceftriaxone Sodium 50 ml @ 100 mls/hr 1X ONCE IV Last administered on at 11:03; Start 11/24/17 at 10:30; Stop 11/24/17 at 10:59; Status DC Azithromycin 250 ml @ 250 mls/hr 1X ONCE IV Last administered on 11/24/17at 11 :02; Start 11/24/17 at 10:30; Stop 11/24/17 at 11:29; Status DC Iohexol (Omnipaque 300 Mg/ml) 75 ml 1X ONCE IV ; Start 11/24/17 at 12:30; Stop 11/24/17 at 12:33; Status DC Info (CONTRAST GIVEN -- Rx MONITORING) 1 each PRN DAILY PRN MC SEE COMMENTS; Start 11/24/17 at 12:45; Stop 11/26/17 at 12:44 Enoxaparin Sodium (Lovenox 40mg Syringe) 40 mg Q24H SQ ; Start 11/24/17 at 15:00 ; Stop 11/24/17 at 15:34; Status DC Lidocaine/Sodium Bicarbonate (Buffered Lidocaine 1%) 3 ml STK-MED ONCE .ROUTE ; Start 11/24/17 at 14:49; Stop 11/24/17 at 14:50; Status DC Lidocaine/Sodium Bicarbonate (Buffered Lidocaine 1%) 6 ml 1X ONCE INJ Last administered on 11/24/17at 15:51; Start 11/24/17 at 15:45; Stop 11/24/17 at 15:46 ; Status DC Ceftriaxone Sodium (Rocephin) 1 gm Q24H IVP Last administered on 11/25/17at 11: 35; Start 11/25/17 at 11:00 Azithromycin (Zithromax) 250 mg DAILY PO Last administered on 11/26/17at 09:32; Start 11/25/17 at 09:00; Stop 11/28/17 at 09:01 Lactobacillus Rhamnosus (Culturelle) 1 cap BID PO Last administered on at 09:32; Start 11/24/17 at 21:00 Ondansetron HCl (Zofran) 4 mg PRN Q4HRS PRN IV NAUSEA/VOMITING Last administered on 11/25/17at 09:14; Start 11/25/17 at 09:00 Enoxaparin Sodium (Lovenox 40mg Syringe) 40 mg Q24H SQ Last administered on at 11:34; Start 11/25/17 at 12:00 Sodium Chloride 1,000 ml @ 1,000 mls/hr 1X ONCE IV Last administered on 16:42; Start 11/25/17 at 16:30; Stop 11/25/17 at 17:29; Status DC Sodium Chloride 1,000 ml @ 1,000 mls/hr 1X ONCE IV Last administered on at 18:10; Start 11/25/17 at 18:30; Stop 11/25/17 at 19:29; Status DC Vitals/I & O Vital Sign - Last 24 Hours 11/25/17 11/25/17 11/25/17 11/25/17 10:52 15:00 18:00 18:00 Temp 98.8 96.1 98.8 96.1 Pulse 100 89 Resp 18 B/P (MAP) 94/58 (70) 82/50 (61) 85/48 (60) 78/48 (58) Pulse Ox 94 95 O2 Delivery Nasal Cannula Nasal Cannula O2 Flow Rate 2.0 11/25/17 11/25/17 11/25/17 11/26/17 19:00 20:00 23:00 03:00 Temp 97.7 99.0 98.8 97.7 99.0 98.8 Pulse 95 87 89 Resp 18 18 18 B/P (MAP) 84/53 (63) 93/55 (68) 93/61 (72) Pulse Ox 96 95 94 O2 Delivery Nasal Cannula Nasal Cannula Nasal Cannula Nasal Cannula O2 Flow Rate 2.0 2.0 2.0 2.0 11/26/17 07:00 Temp 98.9 98.9 Pulse 68 Resp 16 B/P (MAP) 92/62 (72) Pulse Ox 94 O2 Delivery Nasal Cannula O2 Flow Rate 2.0 Intake and Output 11/25/17 11/25/17 11/26/17 15:00 23:00 07:00 Intake Total 350 ml 360 ml Output Total 300 ml 440 ml Balance 350 ml -300 ml -80 ml PHILIP GONZALES MD Nov 26, 2017 10:02
--- NOTE | 2017-11-26 10:34 | PDOC ---
Infectious Disease Note Subjective Subjective pt feeling good ROS ROS no n/v/d/sob Vital Sign Vital Signs Vital Signs Date Time Temp Pulse Resp B/P (MAP) Pulse Ox O2 Delivery O2 Flow Rate FiO2 11/26/17 07:00 98.9 68 16 92/62 (72) 94 Nasal Cannula 2.0 98.9 Physical Exam PHYSICAL EXAM GENERAL: Alert, oriented gentleman, not in any distress. VITAL SIGNS: Stable, afebrile. HEENT: NAD. NECK: Supple, no JVP. There are occasional lymph nodes present, probably reactive. LUNGS: Decreased breath sounds. chest tube in place HEART: S1, S2 regular. No gallop or murmur. ABDOMEN: Soft, nontender, no organomegaly. EXTREMITIES: No edema, cyanosis. SKIN: Unremarkable. NEUROLOGIC: The patient is neurologically intact. Labs Lab Laboratory Tests Test 11/25/17 12:00 11/26/17 03:10 Body Fluid Source Pleural Body Fluid Color Red Body Fluid Clarity Hazy Body Fluid Nucleated Cells 49 /cmm Body Fluid Mononuclear WBCs (%) 81 % Body Fluid Polymorphonuclear Cells 19 % Body Fluid Total RBCs Counted 98002 /cmm White Blood Count 12.7 x10^3/uL (4.0-11.0) Red Blood Count 4.35 x10^6/uL (4.30-5.70) Hemoglobin 13.6 g/dL (13.0-17.5) Hematocrit 39.6 % (39.0-53.0) Mean Corpuscular Volume 91 fL (79-100) Mean Corpuscular Hemoglobin 31 pg (25-35) Mean Corpuscular Hemoglobin Concent 34 g/dL (31-37) Red Cell Distribution Width 12.6 % (11.5-14.5) Platelet Count 219 x10^3/uL (140-400) Neutrophils (%) (Auto) 79 % (31-73) Lymphocytes (%) (Auto) 11 % (24-48) Monocytes (%) (Auto) 9 % (0-9) Eosinophils (%) (Auto) 1 % (0-3) Basophils (%) (Auto) 1 % (0-3) Neutrophils # (Auto) 10.0 x10^3uL (1.8-7.7) Lymphocytes # (Auto) 1.4 x10^3/uL (1.0-4.8) Monocytes # (Auto) 1.1 x10^3/uL (0.0-1.1) Eosinophils # (Auto) 0.1 x10^3/uL (0.0-0.7) Basophils # (Auto) 0.1 x10^3/uL (0.0-0.2) Sodium Level 137 mmol/L (136-145) Potassium Level 3.7 mmol/L (3.5-5.1) Chloride Level 106 mmol/L (98-107) Carbon Dioxide Level 26 mmol/L (21-32) Anion Gap 5 (6-14) Blood Urea Nitrogen 13 mg/dL (8-26) Creatinine 0.9 mg/dL (0.7-1.3) Estimated GFR (Cockcroft-Gault) 88.3 Glucose Level 91 mg/dL (70-99) Calcium Level 7.9 mg/dL (8.5-10.1) Micro Microbiology 11/24/17 Blood Culture - Preliminary, Resulted NO GROWTH AFTER 1 DAY Objective Assessment Large pleural effusion, loculated s/p drainage H/O ? TB 10 yrs ago , treated at [facility] Plan of Care ceftriaxone and azithro ok fluid for cell count, afb stain and culture glucose in fluid obtain records from VICTORINO ULLOA MD Nov 26, 2017 10:34
[2017-11-26 11:00] VITALS: BP 89/55
[2017-11-26] MEDS: cefTRIAXone IV Push 1 GM VIAL. IVP SCH (12:15)
[2017-11-26] MEDS: ENOXAPARIN 40 MG/0.4 ML SYRINGE. SQ SCH (12:15)
--- NOTE | 2017-11-26 12:31 | RAD ---
Single view of the chest. 11/26/2017 9:07 AM Indication: PNEUMONIA, CHEST TUBE CHECK Comparison: Chest radiograph, yesterday Findings: Small caliber left thoracostomy tube persists. Left basilar consolidation is similar to prior study. No pneumothorax is seen. Trace right pleural effusion is again noted. Diffuse interstitial coarsening is seen, similar to prior comparison exams. No acute osseous changes are seen. IMPRESSION: 1. Left thoracostomy tube, similar in position 2. Left basilar consolidation, grossly unchanged 3. Small right pleural effusion, unchanged 4. Diffuse interstitial coarsening which could represent edema or an atypical infectious process, similar to prior exam Electronically signed by: Cuong Stevens MD (11/26/2017 12:27 PM) [id number]
[2017-11-26] MEDS ORDERED: IV NORMAL SALINE 1000ML BAG 1,000 ML IV ONE (14:30)
[2017-11-26 15:00] VITALS: BP 83/47
[2017-11-26] MEDS ORDERED: POTASSIUM CHLORIDE 20 MEQ TABLET.ER. PO ONE (15:00)
--- NOTE | 2017-11-26 15:46 | PDOC ---
PULMONARY PROGRESS NOTES Subjective s/p left chest tube 11/24 1800 cc fluid came out so far, feels better Comments pleural fluid is pink-red, not clotted Vitals Vital Signs Date Time Temp Pulse Resp B/P (MAP) Pulse Ox O2 Delivery O2 Flow Rate FiO2 11/26/17 11:00 98.4 101 16 89/55 (66) 96 Nasal Cannula 2.0 98.4 General: Alert, No acute distress Lungs: Other (improved aeration left lung) Cardiovascular: S1 Abdomen: Soft Neuro Exam: Alert Extremities: No Edema Skin: Warm Labs Laboratory Tests Test 11/24/17 16:00 11/25/17 06:10 11/25/17 12:00 11/26/17 03:10 Body Fluid pH 7.49 Body Fluid Total Protein 4.9 g/dL (.) Body Fluid Lactate Dehydrogenase 261 IU/L (.) White Blood Count 15.5 x10^3/uL (4.0-11.0) 12.7 x10^3/uL (4.0-11.0) Red Blood Count 4.49 x10^6/uL (4.30-5.70) 4.35 x10^6/uL (4.30-5.70) Hemoglobin 13.8 g/dL (13.0-17.5) 13.6 g/dL (13.0-17.5) Hematocrit 40.9 % (39.0-53.0) 39.6 % (39.0-53.0) Mean Corpuscular Volume 91 fL (79-100) 91 fL (79-100) Mean Corpuscular Hemoglobin 31 pg (25-35) 31 pg (25-35) Mean Corpuscular Hemoglobin Concent 34 g/dL (31-37) 34 g/dL (31-37) Red Cell Distribution Width 12.9 % (11.5-14.5) 12.6 % (11.5-14.5) Platelet Count 230 x10^3/uL (140-400) 219 x10^3/uL (140-400) Neutrophils (%) (Auto) 88 % (31-73) 79 % (31-73) Lymphocytes (%) (Auto) 6 % (24-48) 11 % (24-48) Monocytes (%) (Auto) 6 % (0-9) 9 % (0-9) Eosinophils (%) (Auto) 0 % (0-3) 1 % (0-3) Basophils (%) (Auto) 0 % (0-3) 1 % (0-3) Neutrophils # (Auto) 13.6 x10^3uL (1.8-7.7) 10.0 x10^3uL (1.8-7.7) Lymphocytes # (Auto) 0.9 x10^3/uL (1.0-4.8) 1.4 x10^3/uL (1.0-4.8) Monocytes # (Auto) 1.0 x10^3/uL (0.0-1.1) 1.1 x10^3/uL (0.0-1.1) Eosinophils # (Auto) 0.0 x10^3/uL (0.0-0.7) 0.1 x10^3/uL (0.0-0.7) Basophils # (Auto) 0.0 x10^3/uL (0.0-0.2) 0.1 x10^3/uL (0.0-0.2) Segmented Neutrophils % 88 % (35-66) Lymphocytes % 6 % (24-48) Monocytes % 6 % (0-10) Platelet Estimate Adequate (ADEQUATE) Sodium Level 138 mmol/L (136-145) 137 mmol/L (136-145) Potassium Level 3.7 mmol/L (3.5-5.1) 3.7 mmol/L (3.5-5.1) Chloride Level 106 mmol/L (98-107) 106 mmol/L (98-107) Carbon Dioxide Level 26 mmol/L (21-32) 26 mmol/L (21-32) Anion Gap 6 (6-14) 5 (6-14) Blood Urea Nitrogen 12 mg/dL (8-26) 13 mg/dL (8-26) Creatinine 0.8 mg/dL (0.7-1.3) 0.9 mg/dL (0.7-1.3) Estimated GFR (Cockcroft-Gault) 101.1 88.3 BUN/Creatinine Ratio 15 (6-20) Glucose Level 113 mg/dL (70-99) 91 mg/dL (70-99) Calcium Level 8.4 mg/dL (8.5-10.1) 7.9 mg/dL (8.5-10.1) Total Bilirubin 0.4 mg/dL (0.2-1.0) Aspartate Amino Transf (AST/SGOT) 10 U/L (15-37) Alanine Aminotransferase (ALT/SGPT) 15 U/L (16-63) Alkaline Phosphatase 67 U/L (46-116) Total Protein 7.0 g/dL (6.4-8.2) Albumin 2.8 g/dL (3.4-5.0) Albumin/Globulin Ratio 0.7 (1.0-1.7) Body Fluid Source Pleural Body Fluid Color Red Body Fluid Clarity Hazy Body Fluid Nucleated Cells 49 /cmm Body Fluid Mononuclear WBCs (%) 81 % Body Fluid Polymorphonuclear Cells 19 % Body Fluid Total RBCs Counted 15524 /cmm Laboratory Tests Test 11/26/17 03:10 White Blood Count 12.7 x10^3/uL (4.0-11.0) Red Blood Count 4.35 x10^6/uL (4.30-5.70) Hemoglobin 13.6 g/dL (13.0-17.5) Hematocrit 39.6 % (39.0-53.0) Mean Corpuscular Volume 91 fL (79-100) Mean Corpuscular Hemoglobin 31 pg (25-35) Mean Corpuscular Hemoglobin Concent 34 g/dL (31-37) Red Cell Distribution Width 12.6 % (11.5-14.5) Platelet Count 219 x10^3/uL (140-400) Neutrophils (%) (Auto) 79 % (31-73) Lymphocytes (%) (Auto) 11 % (24-48) Monocytes (%) (Auto) 9 % (0-9) Eosinophils (%) (Auto) 1 % (0-3) Basophils (%) (Auto) 1 % (0-3) Neutrophils # (Auto) 10.0 x10^3uL (1.8-7.7) Lymphocytes # (Auto) 1.4 x10^3/uL (1.0-4.8) Monocytes # (Auto) 1.1 x10^3/uL (0.0-1.1) Eosinophils # (Auto) 0.1 x10^3/uL (0.0-0.7) Basophils # (Auto) 0.1 x10^3/uL (0.0-0.2) Sodium Level 137 mmol/L (136-145) Potassium Level 3.7 mmol/L (3.5-5.1) Chloride Level 106 mmol/L (98-107) Carbon Dioxide Level 26 mmol/L (21-32) Anion Gap 5 (6-14) Blood Urea Nitrogen 13 mg/dL (8-26) Creatinine 0.9 mg/dL (0.7-1.3) Estimated GFR (Cockcroft-Gault) 88.3 Glucose Level 91 mg/dL (70-99) Calcium Level 7.9 mg/dL (8.5-10.1) Impression . 1. Large partially loculated left-sided pleural effusion. The patient has a bloody, exudative effusion. Bloody effusions are generally, malignancy, TB, trauma or pulmonary infarction. PE generally does not cause large. loculated effusions. Trauma is not a good fit by history. Cytology is pending and the lab noted it would not be out today. The AFB smear is negative, but that is not particularly sensitive. The ID service obtained a possible past history of TB treatment increasing that possibility. AFB culture pending. I have asked that a pleural fluid adenosine deaminase be done as that test is very sensitive 2. No significant history of tobacco use. Plan . 1. Continue present antibiotics. 2. P.r.n. bronchodilators. 3. P.r.n. oxygen. 4. Await pleural cytology and pleural fluid deaminase NOMAN VARGAS MD Nov 26, 2017 15:46
[2017-11-26 19:00] VITALS: BP 100/71
[2017-11-26 23:00] VITALS: BP 83/42
[2017-11-27] MEDS ORDERED: IV NORMAL SALINE 1000ML BAG 1,000 ML IV ONE (00:15)
[2017-11-27] MEDS: IV NORMAL SALINE 1000ML BAG 1,000 ML IV SCH ×3 (00:25→18:43)
[2017-11-27] MEDS: ACETAMINOPHEN 325 MG TABLET. PO PRN ×3 (00:28→18:42)
[2017-11-27 03:00] VITALS: BP 93/55
[2017-11-27 07:00] VITALS: BP 91/60
[2017-11-27 07:45] LABS: CALCIUM 7.7 mg/dL (8.5-10.1); CREATININE 0.8 mg/dL (0.7-1.3); GFR 101.1; POTASSIUM 3.7 mmol/L (3.5-5.1)
[2017-11-27] MEDS: AZITHROMYCIN 250 MG TABLET. PO SCH (08:19)
[2017-11-27] MEDS: LACTOBACILLUS RHAMNOSUS GG 1 CAPSULE. PO SCH ×2 (08:19→21:23)
--- NOTE | 2017-11-27 10:23 | PDOC ---
PROGRESS NOTES History of Present Illness History of Present Illness Assessment/Plan Assessment/Plan Impression: Dyspnea Pleural effusion on left .Large loculated appearing left pleural fluid collection with significant underlying compressive atelectasis involving the upper lobe, and the entirety of the lower lobe. Mild rightward shift of the mediastinum noted. ? TB 10 yrs ago , treated at [place] Empyema lung ADMITTED INPATIENT NEGATIVE PRESSURE ROOM PULM CONSULT reviewed ID CONSULT EMPERIC IV ANTIBIOTICS, ZITHROMAX, ROCEPHIN URINE STREP PNEUMO AG LEGIONELLA URINE AG resp isolation Vitals Vitals Vital Signs Date Time Temp Pulse Resp B/P (MAP) Pulse Ox O2 Delivery O2 Flow Rate FiO2 11/27/17 07:00 97.6 90 18 91/60 (70) 95 Nasal Cannula 2.0 97.6 Physical Exam Physical Exam GENERAL: Alert, oriented gentleman, not in any distress. VITAL SIGNS: Stable, afebrile. HEENT: NAD. NECK: Supple, no JVP. There are occasional lymph nodes present, probably reactive. LUNGS: Decreased breath sounds. chest tube in place HEART: S1, S2 regular. No gallop or murmur. ABDOMEN: Soft, nontender, no organomegaly. EXTREMITIES: No edema, cyanosis. SKIN: Unremarkable. NEUROLOGIC: The patient is neurologically intact. General: Alert, Oriented X3, Cooperative, No acute distress, mild distress Heart: Regular rate, Normal S1, Normal S2 Lungs: Other (improved aeration left lung) Abdomen: Normal bowel sounds, Soft Extremities: No clubbing, No cyanosis Labs LABS PATIENT: STORMY CASTILLO ACCT: [id number] LOC: [address] [place] [address] U : [id number] AGE/SX: 52/M ROOM: [facility] REG : 11/24/[address]: PHILIP GONZALES MD : 1965 BED: 1 DIS : STATUS: ADM IN TLOC: SPEC #: [id number] DAMARIS: 11/25/17 STATUS: RES REQ #: [id number] RECD: 11/25/[address] [facility] [address]: PHILIP GONZALES MD SOURCE: PLEURAL FL ENTR: 11/25/[address] [facility] [address]: VICTORINO CASTLE MD SPDESC: RAYO LUGO MD NO PCP ORDERED: AFB CULT Procedure Result AFB SPECIMEN PROCESSING Final Concentration AFB CULTURE FINAL PENDING AFB CULTURE GRAM STAIN Final Negative Performed at: DA - [facility] [address] [facility] [address], [place], [place] [id number] Fruit Preserver: AYED Martinez MD, Phone: [phone] Single view of the chest. 11/26/2017 9:07 AM Indication: PNEUMONIA, CHEST TUBE CHECK Comparison: Chest radiograph, yesterday Findings: Small caliber left thoracostomy tube persists. Left basilar consolidation is similar to prior study. No pneumothorax is seen. Trace right pleural effusion is again noted. Diffuse interstitial coarsening is seen, similar to prior comparison exams. No acute osseous changes are seen. IMPRESSION: 1. Left thoracostomy tube, similar in position 2. Left basilar consolidation, grossly unchanged 3. Small right pleural effusion, unchanged 4. Diffuse interstitial coarsening which could represent edema or an atypical infectious process, similar to prior exam Electronically signed by: Cuong Stevens MD (11/26/2017 12:27 PM) [id number] Laboratory Tests Test 11/27/17 07:00 Sodium Level 137 mmol/L (136-145) Potassium Level 3.7 mmol/L (3.5-5.1) Chloride Level 106 mmol/L (98-107) Carbon Dioxide Level 27 mmol/L (21-32) Anion Gap 4 (6-14) Blood Urea Nitrogen 10 mg/dL (8-26) Creatinine 0.8 mg/dL (0.7-1.3) Estimated GFR (Cockcroft-Gault) 101.1 Glucose Level 84 mg/dL (70-99) Lactic Acid Level 0.9 mmol/L (0.4-2.0) Calcium Level 7.7 mg/dL (8.5-10.1) Assessment and Plan Assessmemt and Plan Problems Medical Problems: (1) Dyspnea Status: Acute (2) Empyema lung Status: Acute (3) Pleural effusion on left Status: Acute Comment Review of Relevant I have reviewed the following items chaov (where applicable) has been applied. Labs Laboratory Tests Test 11/25/17 12:00 11/26/17 03:10 11/27/17 07:00 Body Fluid Source Pleural Body Fluid Color Red Body Fluid Clarity Hazy Body Fluid Nucleated Cells 49 /cmm Body Fluid Mononuclear WBCs (%) 81 % Body Fluid Polymorphonuclear Cells 19 % Body Fluid Total RBCs Counted 37671 /cmm Body Fluid Glucose 100 mg/dL (.) White Blood Count 12.7 x10^3/uL (4.0-11.0) Red Blood Count 4.35 x10^6/uL (4.30-5.70) Hemoglobin 13.6 g/dL (13.0-17.5) Hematocrit 39.6 % (39.0-53.0) Mean Corpuscular Volume 91 fL (79-100) Mean Corpuscular Hemoglobin 31 pg (25-35) Mean Corpuscular Hemoglobin Concent 34 g/dL (31-37) Red Cell Distribution Width 12.6 % (11.5-14.5) Platelet Count 219 x10^3/uL (140-400) Neutrophils (%) (Auto) 79 % (31-73) Lymphocytes (%) (Auto) 11 % (24-48) Monocytes (%) (Auto) 9 % (0-9) Eosinophils (%) (Auto) 1 % (0-3) Basophils (%) (Auto) 1 % (0-3) Neutrophils # (Auto) 10.0 x10^3uL (1.8-7.7) Lymphocytes # (Auto) 1.4 x10^3/uL (1.0-4.8) Monocytes # (Auto) 1.1 x10^3/uL (0.0-1.1) Eosinophils # (Auto) 0.1 x10^3/uL (0.0-0.7) Basophils # (Auto) 0.1 x10^3/uL (0.0-0.2) Sodium Level 137 mmol/L (136-145) 137 mmol/L (136-145) Potassium Level 3.7 mmol/L (3.5-5.1) 3.7 mmol/L (3.5-5.1) Chloride Level 106 mmol/L (98-107) 106 mmol/L (98-107) Carbon Dioxide Level 26 mmol/L (21-32) 27 mmol/L (21-32) Anion Gap 5 (6-14) 4 (6-14) Blood Urea Nitrogen 13 mg/dL (8-26) 10 mg/dL (8-26) Creatinine 0.9 mg/dL (0.7-1.3) 0.8 mg/dL (0.7-1.3) Estimated GFR (Cockcroft-Gault) 88.3 101.1 Glucose Level 91 mg/dL (70-99) 84 mg/dL (70-99) Calcium Level 7.9 mg/dL (8.5-10.1) 7.7 mg/dL (8.5-10.1) Lactic Acid Level 0.9 mmol/L (0.4-2.0) Laboratory Tests Test 11/27/17 07:00 Sodium Level 137 mmol/L (136-145) Potassium Level 3.7 mmol/L (3.5-5.1) Chloride Level 106 mmol/L (98-107) Carbon Dioxide Level 27 mmol/L (21-32) Anion Gap 4 (6-14) Blood Urea Nitrogen 10 mg/dL (8-26) Creatinine 0.8 mg/dL (0.7-1.3) Estimated GFR (Cockcroft-Gault) 101.1 Glucose Level 84 mg/dL (70-99) Lactic Acid Level 0.9 mmol/L (0.4-2.0) Calcium Level 7.7 mg/dL (8.5-10.1) Microbiology 11/24/17 Blood Culture - Preliminary, Resulted NO GROWTH AFTER 2 DAYS 11/25/17 AFB Specimen Processing Tissue - Final, Resulted 11/25/17 Acid Fast Bacilli Culture, Resulted Pending 11/25/17 Gram Stain - Final, Resulted Medications Current Medications Albuterol/ Ipratropium (Duoneb) 3 ml 1X ONCE NEB Last administered on at 10:18; Start 11/24/17 at 09:45; Stop 11/24/17 at 09:50; Status DC Sodium Chloride 1,000 ml @ 1,000 mls/hr 1X ONCE IV Last administered on at 10:15; Start 11/24/17 at 09:45; Stop 11/24/17 at 10:44; Status DC Methylprednisolone Sodium Succinate (SOLU-Medrol 125MG VIAL) 125 mg 1X ONCE IV Last administered on 11/24/17at 10:16; Start 11/24/17 at 09:45; Stop 11/24/17 at 09:50; Status DC Ceftriaxone Sodium 50 ml @ 100 mls/hr 1X ONCE IV Last administered on at 11:03; Start 11/24/17 at 10:30; Stop 11/24/17 at 10:59; Status DC Azithromycin 250 ml @ 250 mls/hr 1X ONCE IV Last administered on 11/24/17at 11 :02; Start 11/24/17 at 10:30; Stop 11/24/17 at 11:29; Status DC Iohexol (Omnipaque 300 Mg/ml) 75 ml 1X ONCE IV ; Start 11/24/17 at 12:30; Stop 11/24/17 at 12:33; Status DC Info (CONTRAST GIVEN -- Rx MONITORING) 1 each PRN DAILY PRN MC SEE COMMENTS; Start 11/24/17 at 12:45; Stop 11/26/17 at 12:44; Status DC Enoxaparin Sodium (Lovenox 40mg Syringe) 40 mg Q24H SQ ; Start 11/24/17 at 15:00 ; Stop 11/24/17 at 15:34; Status DC Lidocaine/Sodium Bicarbonate (Buffered Lidocaine 1%) 3 ml STK-MED ONCE .ROUTE ; Start 11/24/17 at 14:49; Stop 11/24/17 at 14:50; Status DC Lidocaine/Sodium Bicarbonate (Buffered Lidocaine 1%) 6 ml 1X ONCE INJ Last administered on 11/24/17at 15:51; Start 11/24/17 at 15:45; Stop 11/24/17 at 15:46 ; Status DC Ceftriaxone Sodium (Rocephin) 1 gm Q24H IVP Last administered on 11/26/17at 12: 15; Start 11/25/17 at 11:00 Azithromycin (Zithromax) 250 mg DAILY PO Last administered on 11/27/17at 08:19; Start 11/25/17 at 09:00; Stop 11/28/17 at 09:01 Lactobacillus Rhamnosus (Culturelle) 1 cap BID PO Last administered on at 08:19; Start 11/24/17 at 21:00 Ondansetron HCl (Zofran) 4 mg PRN Q4HRS PRN IV NAUSEA/VOMITING Last administered on 11/25/17at 09:14; Start 11/25/17 at 09:00 Enoxaparin Sodium (Lovenox 40mg Syringe) 40 mg Q24H SQ Last administered on at 12:15; Start 11/25/17 at 12:00 Sodium Chloride 1,000 ml @ 1,000 mls/hr 1X ONCE IV Last administered on at 16:42; Start 11/25/17 at 16:30; Stop 11/25/17 at 17:29; Status DC Sodium Chloride 1,000 ml @ 1,000 mls/hr 1X ONCE IV Last administered on at 18:10; Start 11/25/17 at 18:30; Stop 11/25/17 at 19:29; Status DC Sodium Chloride 1,000 ml @ 125 mls/hr 1X ONCE IV Last administered on at 16:36; Start 11/26/17 at 14:30; Stop 11/26/17 at 22:29; Status DC Potassium Chloride (Klor-Con) 40 meq 1X ONCE PO Last administered on at 16:35; Start 11/26/17 at 15:00; Stop 11/26/17 at 15:01; Status DC Sodium Chloride 1,000 ml @ 125 mls/hr Q8H IV Last administered on 11/27/17at 06 :03; Start 11/27/17 at 01:00 Sodium Chloride 1,000 ml @ 1,000 mls/hr 1X ONCE IV Last administered on at 00:25; Start 11/27/17 at 00:15; Stop 11/27/17 at 01:14; Status DC Acetaminophen (Tylenol) 650 mg PRN Q6HRS PRN PO FEVER > 101 Last administered on 11/27/17at 00:28; Start 11/27/17 at 00:15 Vitals/I & O Vital Sign - Last 24 Hours 11/26/17 11/26/17 11/26/17 11/26/17 10:41 11:00 15:00 19:00 Temp 98.4 97.5 97.5 98.4 97.5 97.5 Pulse 101 102 114 Resp 16 16 20 B/P (MAP) 89/55 (66) 83/47 (59) 100/71 (81) Pulse Ox 96 93 96 O2 Delivery Nasal Cannula Nasal Cannula Nasal Cannula Nasal Cannula O2 Flow Rate 2.0 2.0 2.0 2.0 11/26/17 11/26/17 11/27/17 11/27/17 20:00 23:00 03:00 07:00 Temp 101.2 97.7 97.6 101.2 97.7 97.6 Pulse 84 94 90 Resp 16 18 B/P (MAP) 83/42 (56) 93/55 (68) 91/60 (70) Pulse Ox 96 97 95 O2 Delivery Nasal Cannula Room Air Nasal Cannula Nasal Cannula O2 Flow Rate 2.0 2.0 2.0 Intake and Output 11/26/17 11/26/17 11/27/17 15:00 23:00 07:00 Intake Total 500 ml 3000 ml Output Total 800 ml 870 ml 1600 ml Balance -800 ml -370 ml 1400 ml PHILIP GONZALES MD Nov 27, 2017 10:22
[2017-11-27 11:00] VITALS: BP 94/62
[2017-11-27] MEDS: cefTRIAXone IV Push 1 GM VIAL. IVP SCH (11:00)
--- NOTE | 2017-11-27 11:03 | PDOC ---
PULMONARY PROGRESS NOTES Subjective s/p left chest tube 11/24 no sig drainage Comments pleural fluid is pink-red, not clotted Vitals Vital Signs Date Time Temp Pulse Resp B/P (MAP) Pulse Ox O2 Delivery O2 Flow Rate FiO2 11/27/17 07:00 97.6 90 18 91/60 (70) 95 Nasal Cannula 2.0 97.6 General: Alert, No acute distress Lungs: Other (improved aeration left lung) Cardiovascular: S1 Abdomen: Soft Neuro Exam: Alert Extremities: No Edema Skin: Warm Labs Laboratory Tests Test 11/25/17 12:00 11/26/17 03:10 11/27/17 07:00 Body Fluid Source Pleural Body Fluid Color Red Body Fluid Clarity Hazy Body Fluid Nucleated Cells 49 /cmm Body Fluid Mononuclear WBCs (%) 81 % Body Fluid Polymorphonuclear Cells 19 % Body Fluid Total RBCs Counted 82616 /cmm Body Fluid Glucose 100 mg/dL (.) White Blood Count 12.7 x10^3/uL (4.0-11.0) Red Blood Count 4.35 x10^6/uL (4.30-5.70) Hemoglobin 13.6 g/dL (13.0-17.5) Hematocrit 39.6 % (39.0-53.0) Mean Corpuscular Volume 91 fL (79-100) Mean Corpuscular Hemoglobin 31 pg (25-35) Mean Corpuscular Hemoglobin Concent 34 g/dL (31-37) Red Cell Distribution Width 12.6 % (11.5-14.5) Platelet Count 219 x10^3/uL (140-400) Neutrophils (%) (Auto) 79 % (31-73) Lymphocytes (%) (Auto) 11 % (24-48) Monocytes (%) (Auto) 9 % (0-9) Eosinophils (%) (Auto) 1 % (0-3) Basophils (%) (Auto) 1 % (0-3) Neutrophils # (Auto) 10.0 x10^3uL (1.8-7.7) Lymphocytes # (Auto) 1.4 x10^3/uL (1.0-4.8) Monocytes # (Auto) 1.1 x10^3/uL (0.0-1.1) Eosinophils # (Auto) 0.1 x10^3/uL (0.0-0.7) Basophils # (Auto) 0.1 x10^3/uL (0.0-0.2) Sodium Level 137 mmol/L (136-145) 137 mmol/L (136-145) Potassium Level 3.7 mmol/L (3.5-5.1) 3.7 mmol/L (3.5-5.1) Chloride Level 106 mmol/L (98-107) 106 mmol/L (98-107) Carbon Dioxide Level 26 mmol/L (21-32) 27 mmol/L (21-32) Anion Gap 5 (6-14) 4 (6-14) Blood Urea Nitrogen 13 mg/dL (8-26) 10 mg/dL (8-26) Creatinine 0.9 mg/dL (0.7-1.3) 0.8 mg/dL (0.7-1.3) Estimated GFR (Cockcroft-Gault) 88.3 101.1 Glucose Level 91 mg/dL (70-99) 84 mg/dL (70-99) Calcium Level 7.9 mg/dL (8.5-10.1) 7.7 mg/dL (8.5-10.1) Lactic Acid Level 0.9 mmol/L (0.4-2.0) Laboratory Tests Test 11/27/17 07:00 Sodium Level 137 mmol/L (136-145) Potassium Level 3.7 mmol/L (3.5-5.1) Chloride Level 106 mmol/L (98-107) Carbon Dioxide Level 27 mmol/L (21-32) Anion Gap 4 (6-14) Blood Urea Nitrogen 10 mg/dL (8-26) Creatinine 0.8 mg/dL (0.7-1.3) Estimated GFR (Cockcroft-Gault) 101.1 Glucose Level 84 mg/dL (70-99) Lactic Acid Level 0.9 mmol/L (0.4-2.0) Calcium Level 7.7 mg/dL (8.5-10.1) Impression . 1. Large partially loculated left-sided pleural effusion. The patient has a bloody, exudative effusion. Bloody effusions are generally, malignancy, TB, trauma or pulmonary infarction. PE generally does not cause large. loculated effusions. Trauma is not a good fit by history. Cytology is pending The AFB smear is negative, but that is not particularly sensitive. The ID service obtained a possible past history of TB treatment increasing that possibility. AFB culture pending. I have asked that a pleural fluid adenosine deaminase be done as that test is very sensitive 2. No significant history of tobacco use. Plan . 1. Continue present antibiotics. 2. P.r.n. bronchodilators. 3. P.r.n. oxygen. 4. Await pleural cytology and pleural fluid deaminase 5. Drainage no sig. will clamp CT today and if no sig. effusion , will remove chest tube. If effusion re-occurs in future, will need pleural biopsy d/w RAYO WILSON MD Nov 27, 2017 11:03
--- NOTE | 2017-11-27 11:26 | PDOC ---
Infectious Disease Note Subjective Subjective pt feeling good ROS ROS no n/v/d/ did have fever Vital Sign Vital Signs Vital Signs Date Time Temp Pulse Resp B/P (MAP) Pulse Ox O2 Delivery O2 Flow Rate FiO2 11/27/17 07:00 97.6 90 18 91/60 (70) 95 Nasal Cannula 2.0 97.6 Physical Exam PHYSICAL EXAM GENERAL: Alert, oriented gentleman, not in any distress. VITAL SIGNS: Stable, afebrile. HEENT: NAD. NECK: Supple, no JVP. There are occasional lymph nodes present, probably reactive. LUNGS: Decreased breath sounds. chest tube in place HEART: S1, S2 regular. No gallop or murmur. ABDOMEN: Soft, nontender, no organomegaly. EXTREMITIES: No edema, cyanosis. SKIN: Unremarkable. NEUROLOGIC: The patient is neurologically intact. Labs Lab Laboratory Tests Test 11/27/17 07:00 Sodium Level 137 mmol/L (136-145) Potassium Level 3.7 mmol/L (3.5-5.1) Chloride Level 106 mmol/L (98-107) Carbon Dioxide Level 27 mmol/L (21-32) Anion Gap 4 (6-14) Blood Urea Nitrogen 10 mg/dL (8-26) Creatinine 0.8 mg/dL (0.7-1.3) Estimated GFR (Cockcroft-Gault) 101.1 Glucose Level 84 mg/dL (70-99) Lactic Acid Level 0.9 mmol/L (0.4-2.0) Calcium Level 7.7 mg/dL (8.5-10.1) Micro Microbiology 11/24/17 Blood Culture - Preliminary, Resulted NO GROWTH AFTER 1 DAY AFB smear neg Objective Assessment Large pleural effusion, loculated s/p drainage,,, AFB stain neg, though it is not very reliable on pleural fluid, culture to follow H/O ? TB 10 yrs ago , treated at [facility] Plan of Care d/c ceftriaxone and azithro fluid for cell count, afb stain and culture glucose in fluid obtain records from [place] d/w Dr Gavino CASTLE,VICTORINO Dubose MD Nov 27, 2017 11:26
[2017-11-27] MEDS: ENOXAPARIN 40 MG/0.4 ML SYRINGE. SQ SCH (11:36)
--- NOTE | 2017-11-27 13:12 | PATHOLOGY ---
Note [facility] Accession Number: [id number] TESTS RESULT FLAG UNITS REF RANGE LAB Clinician Provided Cytology Information No. of containers..01 Other (Miscellaneous) Source: LEFT PLEURAL FLUID DIAGNOSIS: LEFT PLEURAL FLUID NEGATIVE FOR MALIGNANT CELLS. MESOTHELIAL CELLS ARE PRESENT. THIS INTERPRETATION INCLUDES EVALUATION OF A CELL BLOCK. Signed out by: Eric Bynum MD, Pathologist NPI- [id number] Performed by: Janel Valenzuela, Aircraft Launch And Recovery Technician ([facility]) Gross description: 01 35ML, RED, CLOUDY /LCS FLAG LEGEND: L-Low Normal,H-High Normal,LL-Alert Low,HH-Alert High <-Panic Low,>-Panic High,A-Abnormal,AA-Critical Abnormal Performed at: [facility] [address] [address] Vidal Ngo MD, BRISSA [address] [address] Yoseph Munoz MD, Performed at: [address] [id number] MD Vidal Ngo MD Phone: [phone]
[2017-11-27 15:00] VITALS: BP 94/62
--- NOTE | 2017-11-27 16:18 | RAD ---
Single view of the chest. 11/27/2017 9:00 AM Indication: EMPYEMA Comparison: Chest radiograph, aspect Findings: Left thoracostomy tube remains in place. Left basilar opacification has slightly increased and may represent a combination of small residual effusion plus underlying atelectasis and/or infiltrate.. No pneumothorax is seen. Mild right basilar effusion is seen. Diffuse interstitial coarsening is similar. No acute osseous changes. IMPRESSION: 1. Left thoracostomy is unchanged. 2. Mild increase in left basilar opacification which may represent effusion, atelectasis, and/or infiltrate 3. Diffuse interstitial coarsening which could represent edema or an atypical infectious process 4. Trace right pleural effusion 5. Basilar opacities fails to resolve, follow-up CT chest may be helpful to delineate cause of left basilar opacification Electronically signed by: Cuong Stevens MD (11/27/2017 4:14 PM) [id number]
[2017-11-27 19:00] VITALS: BP 90/61
[2017-11-27 23:00] VITALS: BP 93/60
[2017-11-28] MEDS: IV NORMAL SALINE 1000ML BAG 1,000 ML IV SCH ×2 (02:26→10:07)
[2017-11-28 03:06] VITALS: BP 95/63
[2017-11-28 05:40] LABS: BASO % 1 % (0-3); EOS # 0.2 x10^3/uL (0.0-0.7); EOS % 2 % (0-3); HEMATOCRIT 38.2 % (39.0-53.0); HEMOGLOBIN 12.9 g/dL (13.0-17.5); LYMPH # 1.3 x10^3/uL (1.0-4.8); LYMPH % 16 % (24-48); MEAN CORPUSCULAR HEMOGLOBIN 31 pg (25-35); MEAN CORPUSCULAR HGB CONC 34 g/dL (31-37); MEAN CORPUSCULAR VOLUME 92 fL (79-100); MONO # 0.8 x10^3/uL (0.0-1.1); MONO % 9 % (0-9); NEUT # 6.1 x10^3uL (1.8-7.7); NEUT % 73 % (31-73); PLATELET COUNT 195 x10^3/uL (140-400); RED BLOOD COUNT 4.17 x10^6/uL (4.30-5.70); RED CELL DISTRIBUTION WIDTH 12.7 % (11.5-14.5); WHITE BLOOD COUNT 8.4 x10^3/uL (4.0-11.0)
[2017-11-28 06:00] LABS: ALBUMIN 2.3 g/dL (3.4-5.0); ALBUMIN/GLOBULIN RATIO 0.6 (1.0-1.7); CALCIUM 7.8 mg/dL (8.5-10.1); CREATININE 0.8 mg/dL (0.7-1.3); GFR 101.1; POTASSIUM 3.6 mmol/L (3.5-5.1); TOTAL BILIRUBIN 0.5 mg/dL (0.2-1.0); TOTAL PROTEIN 6.2 g/dL (6.4-8.2)
[2017-11-28 07:00] VITALS: BP 99/62
[2017-11-28] MEDS: ACETAMINOPHEN 325 MG TABLET. PO PRN (10:07)
[2017-11-28] MEDS: LACTOBACILLUS RHAMNOSUS GG 1 CAPSULE. PO SCH (10:07)
[2017-11-28] MEDS ORDERED: AMOX1TAB58 PO (10:37)
--- NOTE | 2017-11-28 10:41 | PDOC3 ---
Discharge Summary Visit Information Date of Admission: Nov 24, 2017 Date of Discharge: Nov 28, 2017 Admitting Diagnosis Comment: Assessment Large pleural effusion, loculated s/p drainage,,, AFB stain neg, though it is not very reliable on pleural fluid, culture to follow H/O ? TB 10 yrs ago , treated at [place] - [facility] Final Diagnosis Problems Medical Problems: (1) Dyspnea Status: Acute (2) Empyema lung Status: Acute (3) Pleural effusion on left Status: Acute Brief Hospital Course Allergies Allergies Coded Allergies Type Severity Reaction Last Updated Verified No Known Drug Allergies 11/24/17 No Vital Signs Vital Signs Date Time Temp Pulse Resp B/P (MAP) Pulse Ox O2 Delivery O2 Flow Rate FiO2 11/28/17 08:00 Nasal Cannula 2.0 11/28/17 07:00 97.5 89 18 99/62 (74) 95 97.5 Lab Results Laboratory Tests Test 11/26/17 16:46 11/27/17 07:00 11/28/17 05:04 Miscellaneous Test Comment (.) Sodium Level 137 mmol/L (136-145) 137 mmol/L (136-145) Potassium Level 3.7 mmol/L (3.5-5.1) 3.6 mmol/L (3.5-5.1) Chloride Level 106 mmol/L (98-107) 105 mmol/L (98-107) Carbon Dioxide Level 27 mmol/L (21-32) 28 mmol/L (21-32) Anion Gap 4 (6-14) 4 (6-14) Blood Urea Nitrogen 10 mg/dL (8-26) 10 mg/dL (8-26) Creatinine 0.8 mg/dL (0.7-1.3) 0.8 mg/dL (0.7-1.3) Estimated GFR (Cockcroft-Gault) 101.1 101.1 Glucose Level 84 mg/dL (70-99) 89 mg/dL (70-99) Lactic Acid Level 0.9 mmol/L (0.4-2.0) Calcium Level 7.7 mg/dL (8.5-10.1) 7.8 mg/dL (8.5-10.1) White Blood Count 8.4 x10^3/uL (4.0-11.0) Red Blood Count 4.17 x10^6/uL (4.30-5.70) Hemoglobin 12.9 g/dL (13.0-17.5) Hematocrit 38.2 % (39.0-53.0) Mean Corpuscular Volume 92 fL (79-100) Mean Corpuscular Hemoglobin 31 pg (25-35) Mean Corpuscular Hemoglobin Concent 34 g/dL (31-37) Red Cell Distribution Width 12.7 % (11.5-14.5) Platelet Count 195 x10^3/uL (140-400) Neutrophils (%) (Auto) 73 % (31-73) Lymphocytes (%) (Auto) 16 % (24-48) Monocytes (%) (Auto) 9 % (0-9) Eosinophils (%) (Auto) 2 % (0-3) Basophils (%) (Auto) 1 % (0-3) Neutrophils # (Auto) 6.1 x10^3uL (1.8-7.7) Lymphocytes # (Auto) 1.3 x10^3/uL (1.0-4.8) Monocytes # (Auto) 0.8 x10^3/uL (0.0-1.1) Eosinophils # (Auto) 0.2 x10^3/uL (0.0-0.7) Basophils # (Auto) 0.0 x10^3/uL (0.0-0.2) BUN/Creatinine Ratio 13 (6-20) Total Bilirubin 0.5 mg/dL (0.2-1.0) Aspartate Amino Transf (AST/SGOT) 12 U/L (15-37) Alanine Aminotransferase (ALT/SGPT) 15 U/L (16-63) Alkaline Phosphatase 56 U/L (46-116) Total Protein 6.2 g/dL (6.4-8.2) Albumin 2.3 g/dL (3.4-5.0) Albumin/Globulin Ratio 0.6 (1.0-1.7) Laboratory Tests Test 11/28/17 05:04 White Blood Count 8.4 x10^3/uL (4.0-11.0) Red Blood Count 4.17 x10^6/uL (4.30-5.70) Hemoglobin 12.9 g/dL (13.0-17.5) Hematocrit 38.2 % (39.0-53.0) Mean Corpuscular Volume 92 fL (79-100) Mean Corpuscular Hemoglobin 31 pg (25-35) Mean Corpuscular Hemoglobin Concent 34 g/dL (31-37) Red Cell Distribution Width 12.7 % (11.5-14.5) Platelet Count 195 x10^3/uL (140-400) Neutrophils (%) (Auto) 73 % (31-73) Lymphocytes (%) (Auto) 16 % (24-48) Monocytes (%) (Auto) 9 % (0-9) Eosinophils (%) (Auto) 2 % (0-3) Basophils (%) (Auto) 1 % (0-3) Neutrophils # (Auto) 6.1 x10^3uL (1.8-7.7) Lymphocytes # (Auto) 1.3 x10^3/uL (1.0-4.8) Monocytes # (Auto) 0.8 x10^3/uL (0.0-1.1) Eosinophils # (Auto) 0.2 x10^3/uL (0.0-0.7) Basophils # (Auto) 0.0 x10^3/uL (0.0-0.2) Sodium Level 137 mmol/L (136-145) Potassium Level 3.6 mmol/L (3.5-5.1) Chloride Level 105 mmol/L (98-107) Carbon Dioxide Level 28 mmol/L (21-32) Anion Gap 4 (6-14) Blood Urea Nitrogen 10 mg/dL (8-26) Creatinine 0.8 mg/dL (0.7-1.3) Estimated GFR (Cockcroft-Gault) 101.1 BUN/Creatinine Ratio 13 (6-20) Glucose Level 89 mg/dL (70-99) Calcium Level 7.8 mg/dL (8.5-10.1) Total Bilirubin 0.5 mg/dL (0.2-1.0) Aspartate Amino Transf (AST/SGOT) 12 U/L (15-37) Alanine Aminotransferase (ALT/SGPT) 15 U/L (16-63) Alkaline Phosphatase 56 U/L (46-116) Total Protein 6.2 g/dL (6.4-8.2) Albumin 2.3 g/dL (3.4-5.0) Albumin/Globulin Ratio 0.6 (1.0-1.7) Brief Hospital Course Mr. Salinas is a 52 old male with limited Micronesian, works as a chef under, self-pay , admitted because of a large pleural effusion loculated that needed drainage. Pulmonary TB was on the differential because he had a history of TB in [facility] 10 years ago. But AFB stain from the pleural fluid is negative. Hence okay to discharge per ID actually with no antibiotics. He looks better. I have discussed with his boss who can speak hong konger over the phone and translated for me. Discussed with infectious disease and pulmonary no need for ABX actually, but augmentin x 5 days on chart Discharge Information Condition at Discharge: Improved, Stable Disposition/Orders: D/C to Home Scheduled Amoxicillin/Potassium Clav (Augmentin 500-125 Tablet) 1 Each Tablet, 1 TAB PO BID, #10 Prescribed by: POLLO LUNA on 11/28/17 POLLO TEE MD Nov 28, 2017 10:41
[2017-11-28 10:43] VITALS: BP 96/70
--- NOTE | 2017-11-28 11:23 | PDOC ---
PULMONARY PROGRESS NOTES Subjective NO SIG INCREASE IN DRAINAGE POST CLAMP Comments pleural fluid is pink-red, not clotted Vitals Vital Signs Date Time Temp Pulse Resp B/P (MAP) Pulse Ox O2 Delivery O2 Flow Rate FiO2 11/28/17 10:43 95.4 109 18 96/70 (79) 94 Room Air 95.4 11/28/17 08:00 2.0 General: Alert, No acute distress Lungs: Other (improved aeration left lung) Cardiovascular: S1 Abdomen: Soft Neuro Exam: Alert Extremities: No Edema Skin: Warm Labs Laboratory Tests Test 11/26/17 16:46 11/27/17 07:00 11/28/17 05:04 Miscellaneous Test Comment (.) Sodium Level 137 mmol/L (136-145) 137 mmol/L (136-145) Potassium Level 3.7 mmol/L (3.5-5.1) 3.6 mmol/L (3.5-5.1) Chloride Level 106 mmol/L (98-107) 105 mmol/L (98-107) Carbon Dioxide Level 27 mmol/L (21-32) 28 mmol/L (21-32) Anion Gap 4 (6-14) 4 (6-14) Blood Urea Nitrogen 10 mg/dL (8-26) 10 mg/dL (8-26) Creatinine 0.8 mg/dL (0.7-1.3) 0.8 mg/dL (0.7-1.3) Estimated GFR (Cockcroft-Gault) 101.1 101.1 Glucose Level 84 mg/dL (70-99) 89 mg/dL (70-99) Lactic Acid Level 0.9 mmol/L (0.4-2.0) Calcium Level 7.7 mg/dL (8.5-10.1) 7.8 mg/dL (8.5-10.1) White Blood Count 8.4 x10^3/uL (4.0-11.0) Red Blood Count 4.17 x10^6/uL (4.30-5.70) Hemoglobin 12.9 g/dL (13.0-17.5) Hematocrit 38.2 % (39.0-53.0) Mean Corpuscular Volume 92 fL (79-100) Mean Corpuscular Hemoglobin 31 pg (25-35) Mean Corpuscular Hemoglobin Concent 34 g/dL (31-37) Red Cell Distribution Width 12.7 % (11.5-14.5) Platelet Count 195 x10^3/uL (140-400) Neutrophils (%) (Auto) 73 % (31-73) Lymphocytes (%) (Auto) 16 % (24-48) Monocytes (%) (Auto) 9 % (0-9) Eosinophils (%) (Auto) 2 % (0-3) Basophils (%) (Auto) 1 % (0-3) Neutrophils # (Auto) 6.1 x10^3uL (1.8-7.7) Lymphocytes # (Auto) 1.3 x10^3/uL (1.0-4.8) Monocytes # (Auto) 0.8 x10^3/uL (0.0-1.1) Eosinophils # (Auto) 0.2 x10^3/uL (0.0-0.7) Basophils # (Auto) 0.0 x10^3/uL (0.0-0.2) BUN/Creatinine Ratio 13 (6-20) Total Bilirubin 0.5 mg/dL (0.2-1.0) Aspartate Amino Transf (AST/SGOT) 12 U/L (15-37) Alanine Aminotransferase (ALT/SGPT) 15 U/L (16-63) Alkaline Phosphatase 56 U/L (46-116) Total Protein 6.2 g/dL (6.4-8.2) Albumin 2.3 g/dL (3.4-5.0) Albumin/Globulin Ratio 0.6 (1.0-1.7) Laboratory Tests Test 11/28/17 05:04 White Blood Count 8.4 x10^3/uL (4.0-11.0) Red Blood Count 4.17 x10^6/uL (4.30-5.70) Hemoglobin 12.9 g/dL (13.0-17.5) Hematocrit 38.2 % (39.0-53.0) Mean Corpuscular Volume 92 fL (79-100) Mean Corpuscular Hemoglobin 31 pg (25-35) Mean Corpuscular Hemoglobin Concent 34 g/dL (31-37) Red Cell Distribution Width 12.7 % (11.5-14.5) Platelet Count 195 x10^3/uL (140-400) Neutrophils (%) (Auto) 73 % (31-73) Lymphocytes (%) (Auto) 16 % (24-48) Monocytes (%) (Auto) 9 % (0-9) Eosinophils (%) (Auto) 2 % (0-3) Basophils (%) (Auto) 1 % (0-3) Neutrophils # (Auto) 6.1 x10^3uL (1.8-7.7) Lymphocytes # (Auto) 1.3 x10^3/uL (1.0-4.8) Monocytes # (Auto) 0.8 x10^3/uL (0.0-1.1) Eosinophils # (Auto) 0.2 x10^3/uL (0.0-0.7) Basophils # (Auto) 0.0 x10^3/uL (0.0-0.2) Sodium Level 137 mmol/L (136-145) Potassium Level 3.6 mmol/L (3.5-5.1) Chloride Level 105 mmol/L (98-107) Carbon Dioxide Level 28 mmol/L (21-32) Anion Gap 4 (6-14) Blood Urea Nitrogen 10 mg/dL (8-26) Creatinine 0.8 mg/dL (0.7-1.3) Estimated GFR (Cockcroft-Gault) 101.1 BUN/Creatinine Ratio 13 (6-20) Glucose Level 89 mg/dL (70-99) Calcium Level 7.8 mg/dL (8.5-10.1) Total Bilirubin 0.5 mg/dL (0.2-1.0) Aspartate Amino Transf (AST/SGOT) 12 U/L (15-37) Alanine Aminotransferase (ALT/SGPT) 15 U/L (16-63) Alkaline Phosphatase 56 U/L (46-116) Total Protein 6.2 g/dL (6.4-8.2) Albumin 2.3 g/dL (3.4-5.0) Albumin/Globulin Ratio 0.6 (1.0-1.7) Medications Active Scripts Medications Dose Route/Sig Max Daily Dose Days Date Category Augmentin 500-125 Tablet (Amoxicillin/Potassium Clav) 1 Each Tablet 1 Tab PO BID 11/28/17 Rx Impression . 1. Large partially loculated left-sided pleural effusion. The patient has a blood tinge, exudative effusion. Cytology is pending The AFB smear is negative , but that is not particularly sensitive. The ID service obtained a possible past history of TB treatment in [place] 10 yrs ago. AFB culture pending. I have asked that a pleural fluid adenosine deaminase be done as that test is very sensitive.TB mono spot neg. 2. No significant history of tobacco use. 3. NO SIG INCREASE IN DRAINAGE POST CLAMP Plan . 1. Continue present antibiotics per ID 2. P.r.n. bronchodilators. 3. P.r.n. oxygen. 4. Await pleural cytology and pleural fluid deaminase 5. will dc chest tube.. If effusion re-occurs in future, will need pleural biopsy d/w DR CASTLE/ josie with dc home. RAYO LUGO MD Nov 28, 2017 11:23
--- NOTE | 2017-11-28 11:55 | PDOC ---
Infectious Disease Note Subjective Subjective pt feeling good ROS ROS no n/v/d/ Vital Sign Vital Signs Vital Signs Date Time Temp Pulse Resp B/P (MAP) Pulse Ox O2 Delivery O2 Flow Rate FiO2 11/28/17 10:43 95.4 109 18 96/70 (79) 94 Room Air 95.4 11/28/17 08:00 2.0 Physical Exam PHYSICAL EXAM GENERAL: Alert, oriented gentleman, not in any distress. VITAL SIGNS: Stable, afebrile. HEENT: NAD. NECK: Supple, no JVP. There are occasional lymph nodes present, probably reactive. LUNGS: Decreased breath sounds. chest tube in place HEART: S1, S2 regular. No gallop or murmur. ABDOMEN: Soft, nontender, no organomegaly. EXTREMITIES: No edema, cyanosis. SKIN: Unremarkable. NEUROLOGIC: The patient is neurologically intact. Labs Lab Laboratory Tests Test 11/28/17 05:04 White Blood Count 8.4 x10^3/uL (4.0-11.0) Red Blood Count 4.17 x10^6/uL (4.30-5.70) Hemoglobin 12.9 g/dL (13.0-17.5) Hematocrit 38.2 % (39.0-53.0) Mean Corpuscular Volume 92 fL (79-100) Mean Corpuscular Hemoglobin 31 pg (25-35) Mean Corpuscular Hemoglobin Concent 34 g/dL (31-37) Red Cell Distribution Width 12.7 % (11.5-14.5) Platelet Count 195 x10^3/uL (140-400) Neutrophils (%) (Auto) 73 % (31-73) Lymphocytes (%) (Auto) 16 % (24-48) Monocytes (%) (Auto) 9 % (0-9) Eosinophils (%) (Auto) 2 % (0-3) Basophils (%) (Auto) 1 % (0-3) Neutrophils # (Auto) 6.1 x10^3uL (1.8-7.7) Lymphocytes # (Auto) 1.3 x10^3/uL (1.0-4.8) Monocytes # (Auto) 0.8 x10^3/uL (0.0-1.1) Eosinophils # (Auto) 0.2 x10^3/uL (0.0-0.7) Basophils # (Auto) 0.0 x10^3/uL (0.0-0.2) Sodium Level 137 mmol/L (136-145) Potassium Level 3.6 mmol/L (3.5-5.1) Chloride Level 105 mmol/L (98-107) Carbon Dioxide Level 28 mmol/L (21-32) Anion Gap 4 (6-14) Blood Urea Nitrogen 10 mg/dL (8-26) Creatinine 0.8 mg/dL (0.7-1.3) Estimated GFR (Cockcroft-Gault) 101.1 BUN/Creatinine Ratio 13 (6-20) Glucose Level 89 mg/dL (70-99) Calcium Level 7.8 mg/dL (8.5-10.1) Total Bilirubin 0.5 mg/dL (0.2-1.0) Aspartate Amino Transf (AST/SGOT) 12 U/L (15-37) Alanine Aminotransferase (ALT/SGPT) 15 U/L (16-63) Alkaline Phosphatase 56 U/L (46-116) Total Protein 6.2 g/dL (6.4-8.2) Albumin 2.3 g/dL (3.4-5.0) Albumin/Globulin Ratio 0.6 (1.0-1.7) Micro Microbiology 11/24/17 Blood Culture - Preliminary, Resulted NO GROWTH AFTER 1 DAY AFB smear neg T spot neg Objective Assessment Large pleural effusion, loculated s/p drainage,,, AFB stain neg, though it is not very reliable on pleural fluid, culture to follow etiology unclear Plan Plan of Care fluid for cell count, afb stain and culture glucose in fluid obtain records from [facility] d/w Dr Mancia d/w pt in detail, explained the culture will take 4 wks if fluid reaccumulates then will need VATS f/u with us in 4 wks VICTORINO CASTLE MD Nov 28, 2017 11:55
[2017-11-28] MEDS: ENOXAPARIN 40 MG/0.4 ML SYRINGE. SQ SCH (12:00)
--- NOTE | 2017-11-28 17:45 | RAD ---
EXAM: AP view of the chest DATE: 11/28/2017 7:20 AM INDICATION: empyema COMPARISON: 11/27/2017, 11/26/2017 FINDINGS/ IMPRESSION: PICC catheter projects over the left lung base, stable. Stable cardiac mediastinal silhouette. Right lung base opacities from known empyema, grossly stable. Small bilateral pleural effusions are seen. Associated left lung base opacities likely atelectasis/consolidation. No pneumothorax. Electronically signed by: Wesley Colindres MD (11/28/2017 5:41 PM) [facility]
== END 2017-11-28 14:20 | disposition home or self-care (01) | DRG 187 ==
LOC: ER 09:07 → 5 SOUTH 10:36
PROVIDERS: ADMIT Family Medicine; ATTEND Family Medicine
PROC: 0W9B30Z Drainage of Left Pleural Cavity with Drainage Device, Percutaneous Approach (ICD-10-PCS; principal; 2017-11-24)
DX: J90 Pleural effusion, not elsewhere classified (principal); J98.11 Atelectasis; Z86.11 Personal history of tuberculosis
CPT/HCPCS: 32557; 36415; 71045; 71046; 71275; 80048; 80053; 82553; 82945; 83605; 83615; 83880; 83986; 84157; 84484; 85007; 85025; 85379; 86481; 87040; 87071; 87075; 87116; 87449; 88112; 88305; 89050; 93005; 94640; 96365; 96375; A4215; C1729; C1894; J0456; J0690; J0696; J1650; J2405; J2930; J7030; J7620; Q0144; 99285-25